=== PATIENT | female | born 1955 | race Caucasian/White ===

== ENCOUNTER → 2018-05-23 09:05 | Outpatient (CLI) | payer OTHER, SELFPAY ==
--- NOTE | 2018-05-23 09:08 | MM_ITS ---
MM Dig screening mamm BI w/CAD CAD Screening COMPARISON: Digital mammograms with CAD 05/17/2017 and 05/13/2016 INDICATION: There is a history of breast cancer in patient's 2 aunts. There is been previous biopsy left breast for benign disease. TECHNIQUE: Standard CC and MLO images were obtained. R2 CAD reviewed. FINDINGS: Moderate heterogenic fibroglandular densities are seen in the central portions of both breasts. There are scattered benign-appearing calcination is in each breast. There is faint arterial calcination in each breast as well. There is no suspicious lesion and there are no suspicious microcalcifications. IMPRESSION: Moderate breast density with no suspicious lesion seen BI-RADS Category: 2 Benign Finding(s) RECOMMENDED FOLLOW-UP: 1YR - 1 YEAR FOLLOW-UP (A letter has been sent to the patient regarding results of the study.)
== END ==
PROVIDERS: Family Provider Internal Medicine Adolescent Medicine; PCP Physician Assistant; Visit Provider Physician Assistant
DX: Z12.31 Encounter for screening mammogram for malignant neoplasm of breast (principal)
CPT/HCPCS: 77067

== ENCOUNTER 2019-03-16 17:20 | Emergency (ER) | payer OTHER, SELFPAY ==
[2019-03-16 17:28] VITALS: BP 134/68; PULSE 97; RESP 18; TEMP 36.3; O2SAT 99; BMI 33.1
[2019-03-16 17:34] VITALS: BP 134/68; PULSE 97; RESP 18; TEMP 36.3; O2SAT 99; BMI 33.1
--- NOTE | 2019-03-16 17:35 | HMH.EDUTC ---
[facility] [place] Disposition Clinical Impression: Gastroenteritis Disposition: Home, Self-Care Condition on Discharge: Good Instructions: Viral Gastroenteritis, DI for Viral Gastroenteritis -- Adult Additional Instructions: Drink plenty of fluids. Take tylenol or ibuprofen for pain or fever Take the zofran for nausea. This does not seem like it is an appendicitis, but if your symptoms are not starting to get better in 24 hours please go to the ER to be evaluated. Follow up with your regular doctor. GO TO THE ER FOR ANY WORSENING OR LIFE THREATENING SYMPTOMS Prescriptions: Ondansetron [Zofran 4mg ODT] 4 mg PO Q8HP PRN #30 tab.rapdis PRN Reason: Nausea raNITIdine HCl [Zantac 150mg] 150 mg PO BID 10 Days #20 tab Referrals: Irais Flores APRN [Primary Care Provider] - Time of Disposition: 17:47 Medical Decision Making - Medical Records Medical records reviewed: Yes: I reviewed the patient's medical records. - [place] Inquiry Pt receiving controlled substance: No [place] was queried for this patient: No Vital Signs: 03/16/19 17:28 03/16/19 17:34 03/16/19 17:50 Temperature 97.3 F L 97.3 F L 97.3 F L Temperature Source Oral Oral Oral Pulse Rate 97 H Pulse Rate [Right Brachial] 97 H 97 H Respiratory Rate 18 18 18 Blood Pressure 134/68 Blood Pressure [Right Arm] 134/68 134/68 Blood Pressure Mean [Right Arm] 90 90 Blood Pressure Source Automatic Cuff Blood Pressure Source [Right Arm] Automatic Cuff Automatic Cuff Blood Pressure Position Sitting Blood Pressure Position [Right Arm] Sitting Sitting 02 Sat by Pulse Oximetry 99 99 Oxygen Delivery Method Room Air Room Air Room Air [facility] [place] HPI - General Stated complaint: weakness,vomiting Time Seen by Provider: 03/16/19 17:35 Mode of Arrival: Ambulatory Source of Information: Patient Limitations: No Limitations Description of Symptoms (Recalled from Triage Doc. by RN): nausea and vomiting tuesday, the next morning stomach was sore from vomiting, hasn't ate much since - History of Present Illness Provider Complaint: She denies abdominal pain. She states that she came in because she does not seem to be getting better as fast as she thought she should. She is drinking fluids well and no longer vomiting, but she still is having nausea. She denies any diarrhea. - Related Data Home Medications Medication Instructions Recorded Confirmed acetaminophen ER 650 mg 650 mg PO BID tab 01/16/18 01/18/19 tablet,extended release aspirin 81 mg tablet,delayed 81 mg PO DAILY tab 01/16/18 01/18/19 release atorvastatin 40 mg tablet 40 mg PO DAILY tab 01/16/18 01/18/19 calcium carbonate-vitamin D3 600 1 cap PO BID cap 01/16/18 01/18/19 mg calcium-200 unit capsule fenofibrate 160 mg tablet 160 mg PO DAILY tab 01/16/18 01/18/19 glipizide ER 2.5 mg tablet, 2.5 mg PO DAILY tab 01/16/18 01/18/19 extended release 24 hr hydroxychloroquine 200 mg tablet 400 mg PO DAILY tab 01/16/18 01/18/19 inulin-sorbitol 1.5 gram chewable 3 g PO DAILY tab 01/16/18 01/18/19 tablet lisinopril 20 1 tab PO DAILY tab 01/16/18 01/18/19 mg-hydrochlorothiazide 25 mg tablet melatonin 5 mg capsule 10 mg PO QHS cap 01/16/18 01/18/19 metformin ER 500 mg 750 mg PO DAILY tab 01/16/18 01/18/19 tablet,extended release 24 hr multivitamin,ih-ghin-ddyvxxjw 1 tab PO QAM 01/16/18 01/18/19 tablet niacin 500 mg tablet 1,000 mg PO QHS tab 01/16/18 01/18/19 omega 1-hws-zqq-fish oil 1,000 mg 1 cap PO DAILY cap 01/16/18 01/18/19 (120 mg-180 mg) capsule Previous Rx's Medication Instructions Recorded conjugated estrogens 0.625 mg/gram 1 applic VAGINAL .twice a week #30 01/18/19 vaginal cream g oxybutynin chloride ER 10 mg 10 mg PO DAILY 30 Days #30 tab 01/18/19 tablet,extended release 24 hr Ondansetron [Zofran 4mg ODT] 4 mg PO Q8HP PRN #30 tab.rapdis 03/16/19 raNITIdine HCl [Zantac 150mg] 150 mg PO BID 10 Days #20 tab 03/16/19 Allergies All
--- NOTE | 2019-03-16 17:45 | ED_ITS ---
[place] Disposition Clinical Impression: Gastroenteritis Disposition: Home, Self-Care Condition on Discharge: Good Instructions: Viral Gastroenteritis, DI for Viral Gastroenteritis -- Adult Additional Instructions: Drink plenty of fluids. Take tylenol or ibuprofen for pain or fever Take the zofran for nausea. This does not seem like it is an appendicitis, but if your symptoms are not starting to get better in 24 hours please go to the ER to be evaluated. Follow up with your regular doctor. GO TO THE ER FOR ANY WORSENING OR LIFE THREATENING SYMPTOMS Prescriptions: Ondansetron [Zofran 4mg ODT] 4 mg PO Q8HP PRN #30 tab.rapdis PRN Reason: Nausea raNITIdine HCl [Zantac 150mg] 150 mg PO BID 10 Days #20 tab Referrals: Irais Flores APRN [Primary Care Provider] - Time of Disposition: 17:47 Medical Decision Making - Medical Records Medical records reviewed: Yes: I reviewed the patient's medical records. - [place] Inquiry Pt receiving controlled substance: No [place] was queried for this patient: No Vital Signs: 03/16/19 17:28 03/16/19 17:34 03/16/19 17:50 Temperature 97.3 F L 97.3 F L 97.3 F L Temperature Source Oral Oral Oral Pulse Rate 97 H Pulse Rate [Right Brachial] 97 H 97 H Respiratory Rate 18 18 18 Blood Pressure 134/68 Blood Pressure [Right Arm] 134/68 134/68 Blood Pressure Mean [Right Arm] 90 90 Blood Pressure Source Automatic Cuff Blood Pressure Source [Right Arm] Automatic Cuff Automatic Cuff Blood Pressure Position Sitting Blood Pressure Position [Right Arm] Sitting Sitting 02 Sat by Pulse Oximetry 99 99 Oxygen Delivery Method Room Air Room Air Room Air [place] HPI - General Stated complaint: weakness,vomiting Time Seen by Provider: 03/16/19 17:35 Mode of Arrival: Ambulatory Source of Information: Patient Limitations: No Limitations Description of Symptoms (Recalled from Triage Doc. by RN): nausea and vomiting tuesday, the next morning stomach was sore from vomiting, hasn't ate much since - History of Present Illness Provider Complaint: She denies abdominal pain. She states that she came in because she does not seem to be getting better as fast as she thought she should. She is drinking fluids well and no longer vomiting, but she still is having nausea. She denies any diarrhea. - Related Data Home Medications Medication Instructions Recorded Confirmed acetaminophen ER 650 mg 650 mg PO BID tab 01/16/18 01/18/19 tablet,extended release aspirin 81 mg tablet,delayed 81 mg PO DAILY tab 01/16/18 01/18/19 release atorvastatin 40 mg tablet 40 mg PO DAILY tab 01/16/18 01/18/19 calcium carbonate-vitamin D3 600 1 cap PO BID cap 01/16/18 01/18/19 mg calcium-200 unit capsule fenofibrate 160 mg tablet 160 mg PO DAILY tab 01/16/18 01/18/19 glipizide ER 2.5 mg tablet, 2.5 mg PO DAILY tab 01/16/18 01/18/19 extended release 24 hr hydroxychloroquine 200 mg tablet 400 mg PO DAILY tab 01/16/18 01/18/19 inulin-sorbitol 1.5 gram chewable 3 g PO DAILY tab 01/16/18 01/18/19 tablet lisinopril 20 1 tab PO DAILY tab 01/16/18 01/18/19 mg-hydrochlorothiazide 25 mg tablet melatonin 5 mg capsule 10 mg PO QHS cap 01/16/18 01/18/19 metformin ER 500 mg 750 mg PO DAILY tab
[2019-03-16 17:50] VITALS: BP 134/68; PULSE 97; RESP 18; TEMP 36.3; O2SAT 99
== END 2019-03-16 17:51 | disposition home or self-care (01) ==
PROVIDERS: Emergency Provider Nurse Practitioner Family; PCP Nurse Practitioner Family
DX: K52.9 Noninfective gastroenteritis and colitis, unspecified (principal); F32.9 Major depressive disorder, single episode, unspecified; E11.9 Type 2 diabetes mellitus without complications; Z79.84 Long term (current) use of oral hypoglycemic drugs; I10 Essential (primary) hypertension; E78.5 Hyperlipidemia, unspecified
CPT/HCPCS: 99201

== ENCOUNTER → 2019-05-25 10:17 | Outpatient (CLI) | payer OTHER, SELFPAY ==
--- NOTE | 2019-05-25 10:18 | MM_ITS ---
PROCEDURE: MM DIG SCREENING MAMM BI W/CAD Patient Age:63Y CLINICAL INDICATION: screening 63-year-old. No hormones but no new complaints Left breast prior benign stereotactic biopsy Family history: 2Paternal aunts with breast cancer COMPARISON: DMDXUL DIG MAMM-DX UNI-LT from 03/29/2013 [facility] DIG MAMM-SCREEN NIKKIE from 04/09/2014 [facility] DIG MAMM-SCREEN NIKKIE from 04/14/2015 [facility] DIG MAMM-SCREEN NIKKIE from 05/13/2016 [facility] DIG MAMM-SCREEN NIKKIE W/CAD from 05/17/2017 [facility] MM Dig screening mamm BI w/CAD from 05/23/2018 TECHNIQUE: Standard CC and MLO images were obtained. R2 CAD reviewed. FINDINGS: Areas of moderately dense heterogeneous breast fibroglandular elements again seen bilaterally most evident distributed superior and upper outer quadrant regions both breast . However this is a similar pattern to previous studies with no new suspicious or dominant mass evident. No suspicious new calcifications. Scattered benign dense round calcifications along with minimal vascular calcifications again noted bilateral. Bilateral follow-up 1 year adequate IMPRESSION: Stable mammogram with no significant new findings. Bilateral follow-up 1 year Heterogeneous moderate density breast BI-RAD Category: 2 Benign Finding(s) FOLLOW-UP: 1YR 1 Year Follow-up (A letter has been sent to the patient regarding results of the study.) Dictated by: Guillermo Mcgraw MD 05/27/2019 11:59 Signed by: <Electronically signed by Guillermo Mcgraw MD in [place]> 05/27/2019 11:59
== END ==
PROVIDERS: PCP Nurse Practitioner Family; Visit Provider Obstetrics & Gynecology
DX: Z12.31 Encounter for screening mammogram for malignant neoplasm of breast (principal)
CPT/HCPCS: 77067

== ENCOUNTER → 2020-05-27 09:52 | Outpatient (CLI) | payer MEDICARE, OTHER, SELFPAY ==
--- NOTE | 2020-05-27 09:56 | MM_ITS ---
PROCEDURE: MM DIG SCREENING MAMM BI W/CAD Digital Breast Tomosynthesis Included CLINICAL INDICATION: SCREENING there is a history of breast cancer in the patient's paternal aunts. There has been a previous biopsy left breast for benign disease. COMPARISON: MG [facility] DIG MAMM-SCREEN NIKKIE W/CAD from 05/17/2017 MG [facility] MM Dig screening mamm BI w/CAD from 05/23/2018 MG MM DIG SCREENING MAMM BI W/CAD from 05/25/2019 TECHNIQUE: Standard CC and MLO images and 3D Tomosynthesis was obtained. R2 CAD reviewed. FINDINGS: Right mildly heterogenic fibroglandular densities are seen in the central portions of both breasts. There is scattered benign-appearing calcifications in each breast. There is a biopsy clip left breast. There is faint arterial calcification in each breast. There is no suspicious lesion in either breast and no suspicious microcalcifications. IMPRESSION: Moderate breast density with no suspicious lesions seen BI-RAD Category: 2 Benign Finding(s) FOLLOW-UP: 1YR 1 Year Follow-up (A letter has been sent to the patient regarding results of the study.) Dictated by: Dr. Jason Mackay MD 05/28/2020 11:25 Dr. Jason Mackay MD in [place] 05/28/2020 11:25
== END ==
PROVIDERS: PCP Nurse Practitioner Family; Visit Provider Nurse Practitioner Family
DX: Z12.31 Encounter for screening mammogram for malignant neoplasm of breast (principal)
CPT/HCPCS: 77063; 77067

== ENCOUNTER → 2021-04-25 11:11 | Outpatient (CLI) | payer MEDICARE, OTHER, SELFPAY | PROVIDERS: Visit Provider Ophthalmology | DX: Z01.812 Encounter for preprocedural laboratory examination (principal); Z20.822 Contact with and (suspected) exposure to COVID-19 | CPT/HCPCS: U0003 ==

== ENCOUNTER 2021-04-28 10:06 | Day surgery (SDC) | payer MEDICARE, OTHER, SELFPAY ==
[2021-04-21 13:45] VITALS: BMI 32.2
[2021-04-28 10:41] VITALS: BP 175/107; PULSE 93; RESP 18; TEMP 36.3; O2SAT 99
[2021-04-28 11:53] VITALS: BP 175/78; PULSE 77; RESP 18; O2SAT 99
[2021-04-28 11:58] VITALS: BP 170/70; PULSE 74; RESP 18; O2SAT 100
[2021-04-28 12:03] VITALS: BP 168/62; PULSE 70; RESP 18; O2SAT 100
[2021-04-28 12:08] VITALS: BP 162/74; PULSE 71; RESP 18; O2SAT 100
[2021-04-28 12:10] VITALS: BP 167/96; PULSE 68; RESP 16; TEMP 37.1; O2SAT 100
[2021-04-29 07:10] LABS: POC Glucose,Bedside 105 (70-110)
== END 2021-04-28 12:22 | disposition home or self-care (01) ==
LOC: OR 10:09
PROVIDERS: PCP Nurse Practitioner Family; Visit Provider Ophthalmology
DX: H25.813 Combined forms of age-related cataract, bilateral (principal); H02.834 Dermatochalasis of left upper eyelid; H02.831 Dermatochalasis of right upper eyelid; M19.90 Unspecified osteoarthritis, unspecified site; E11.9 Type 2 diabetes mellitus without complications; I10 Essential (primary) hypertension; E78.5 Hyperlipidemia, unspecified; Z79.82 Long term (current) use of aspirin; Z79.84 Long term (current) use of oral hypoglycemic drugs; Z79.899 Other long term (current) drug therapy
CPT/HCPCS: 66984; 82962; V2632

== ENCOUNTER → 2021-05-09 11:55 | Outpatient (CLI) | payer MEDICARE, OTHER, SELFPAY | PROVIDERS: Visit Provider Ophthalmology | DX: Z01.812 Encounter for preprocedural laboratory examination (principal); Z20.822 Contact with and (suspected) exposure to COVID-19 | CPT/HCPCS: U0003 ==

== ENCOUNTER 2021-05-12 08:38 | Day surgery (SDC) | payer MEDICARE, OTHER, SELFPAY ==
[2021-05-08 13:40] VITALS: BMI 32.2
[2021-05-12 09:18] VITALS: BP 153/105; PULSE 82; RESP 18; TEMP 36.5; O2SAT 98
[2021-05-12 09:32] LABS: POC Glucose,Bedside 100 (70-110)
[2021-05-12 10:44] VITALS: BP 193/87; PULSE 72; RESP 18; O2SAT 100
[2021-05-12 10:49] VITALS: BP 150/68; PULSE 67; RESP 18; O2SAT 100
[2021-05-12 10:54] VITALS: BP 142/66; PULSE 67; RESP 18; O2SAT 100
[2021-05-12 10:59] VITALS: BP 142/69; PULSE 68; RESP 18; O2SAT 100
[2021-05-12 11:01] VITALS: BP 160/82; PULSE 72; RESP 18; TEMP 36.5; O2SAT 100
== END 2021-05-12 11:09 | disposition home or self-care (01) ==
LOC: OR 08:41
PROVIDERS: PCP Nurse Practitioner Family; Visit Provider Ophthalmology
DX: H25.813 Combined forms of age-related cataract, bilateral (principal); H02.831 Dermatochalasis of right upper eyelid; H02.834 Dermatochalasis of left upper eyelid; H53.149 Visual discomfort, unspecified; M19.90 Unspecified osteoarthritis, unspecified site; E11.9 Type 2 diabetes mellitus without complications; I10 Essential (primary) hypertension; E78.5 Hyperlipidemia, unspecified; Z79.82 Long term (current) use of aspirin; Z79.899 Other long term (current) drug therapy; Z79.84 Long term (current) use of oral hypoglycemic drugs
CPT/HCPCS: 66984; 82962; V2632

== ENCOUNTER → 2021-05-29 09:41 | Outpatient (CLI) | payer MEDICARE, OTHER, SELFPAY ==
--- NOTE | 2021-05-29 09:43 | MM_ITS ---
PROCEDURE: MM DIG SCREENING MAMM BI W/CAD Digital Breast Tomosynthesis Included CLINICAL INDICATION: SCREENING COMPARISON: MG [facility] MM Dig screening mamm BI w/CAD from 05/23/2018 MG MM DIG SCREENING MAMM BI W/CAD from 05/25/2019 MG MM DIG SCREENING MAMM BI W/CAD from 05/27/2020 TECHNIQUE: Standard CC and MLO images and 3D Tomosynthesis was obtained. R2 CAD reviewed. FINDINGS: There are scattered areas of fibroglandular density. Benign-appearing calcifications are noted bilaterally. No suspicious appearing mass, malignant-appearing microcalcification, architectural distortion, or skin thickening. Biopsy clip is present in the medial aspect of left breast middle 1/ IMPRESSION: Benign findings. No evidence of malignancy with no significant BI-RAD Category: 2 Benign Finding FOLLOW-UP: 1 YR 1 Year Follow-up (A letter has been sent to the patient regarding results of the study.) Dictated by: Jose Canseco MD 06/04/2021 17:45 Jose Canseco MD in [place] 06/04/2021 17:45
== END ==
PROVIDERS: PCP Nurse Practitioner Family; Visit Provider Nurse Practitioner Family
DX: Z12.31 Encounter for screening mammogram for malignant neoplasm of breast (principal)
CPT/HCPCS: 77063; 77067

== ENCOUNTER → 2021-11-20 09:05 | Outpatient (CLI) | payer MEDICARE, OTHER, SELFPAY ==
--- NOTE | 2021-11-20 09:21 | XR_ITS ---
FINAL REPORT TECHNIQUE: Bone mineral density was calculated of the lumbar spine and hip. CLINICAL HISTORY: . post menopausal FINDINGS: Using L1-4, the bone mineral density of the spine is 0.946 g/cm2, corresponding to T-score of -0.9. Using the left hip, the bone mineral density of the femoral neck is 0.872 g/cm2, corresponding to a T-score of -0.6. IMPRESSION: Normal bone mineral density of the lumbar spine and proximal left femur. Reviewed, Interpreted and Dictated by Julian Hargrove III, MD Transcribed by Yonis Ramires Authenticated by Julian Hargrove III, MD on 11/20/2021 10:09:[address] [facility]
== END ==
PROVIDERS: PCP Nurse Practitioner Family; Visit Provider Nurse Practitioner Family
DX: Z13.820 Encounter for screening for osteoporosis (principal); Z78.0 Asymptomatic menopausal state
CPT/HCPCS: 77080

== ENCOUNTER 2022-04-21 12:37 | Inpatient (IN) | payer MEDICARE, OTHER, SELFPAY ==
--- NOTE | 2022-04-21 13:12 | HMH.EDUTC ---
[facility] [facility] [place] Condition on Discharge: Fair <Silas Killian - Last Filed: 04/21/22 18:53> Condition on Discharge: Good <Anurag Yadav - Last Filed: 04/22/22 09:28> Clinical Impression: Acute pancreatitis Qualifiers: Pancreatitis type: other Acute pancreatitis complication: unspecified Qualified Code(s): K85.80 - Other acute pancreatitis without necrosis or infection Disposition: Admitted As Inpatient Medical Decision Making - Lab Data Result diagrams: 04/21/22 14:16 04/21/22 14:16 - CT Data CT Scan: Abdomen, Pelvis Time Received: 18:[address] Reviewed: Yes: I have reviewed the patient's CT results, I have viewed the radiologist's interpretation - Reevaluation(s) Time: 18:54 <Silas Killian - Last Filed: 04/21/22 18:53> - Medical Records Medical records reviewed: No: I reviewed the patient's medical records. - [place] Inquiry Pt receiving controlled substance: No - Lab Data Result diagrams: 04/22/22 05:45 04/22/22 05:45 <Anurag Yadav - Last Filed: 04/22/22 09:28> Vital Signs: 04/21/22 13:26 04/21/22 17:04 04/21/22 20:00 Temperature 98.7 F 98.0 F Temperature Source Oral Oral Pulse Rate Pulse Rate [Left Radial] 100 H 93 H Respiratory Rate 17 20 Blood Pressure Blood Pressure [Right Arm] 153/96 H 161/86 H Blood Pressure Mean [Right Arm] 115 111 Blood Pressure Source [Right Arm] Automatic Cuff Blood Pressure Position [Right Arm] Sitting 02 Sat by Pulse Oximetry 99 99 95 Oxygen Delivery Method Room Air Room Air 04/21/22 20:23 Temperature 98.1 F Temperature Source Oral Pulse Rate 90 Pulse Rate [Left Radial] 76 Respiratory Rate 20 Blood Pressure 153/78 H Blood Pressure [Right Arm] 137/75 Blood Pressure Mean [Right Arm] 95 Blood Pressure Source [Right Arm] Automatic Cuff Blood Pressure Position [Right Arm] Supine 02 Sat by Pulse Oximetry 95 Oxygen Delivery Method Room Air - Lab Data Lab Results 04/21/22 13:30: Urine Color [place], Urine Appearance Clear, Urine pH 5.5, Ur Specific [place] 1.030, Urine Protein 1+, Urine Glucose (UA) Negative, Urine Ketones 15, Urine Blood Trace, Urine Nitrate Negative, Urine Bilirubin 2+ A, Urine Urobilinogen 0.2, Ur Leukocyte Esterase Negative 04/21/22 14:16: WBC 12.8 H, RBC 4.48, Hgb 12.8, Hct 37.0, MCV 82.7, MCH 28.6, MCHC 34.5, RDW 13.8, Plt Count 284, MPV 9.5, Neut % (Auto) 88.3 H, Lymph % (Auto) 4.9 L, [place] % (Auto) 5.0, Eos % (Auto) 1.6, Baso % (Auto) 0.2, Neut # (Auto) 11.3 H, Lymph # (Auto) 0.6 L, [place] # (Auto) 0.6, Eos # (Auto) 0.2, Baso # (Auto) 0.0, Total Counted 100, Neutrophils % (Manual) 87 H, Band Neutrophils % 1.0, Lymphocytes % (Manual) 6 L, Monocytes % (Manual) 6, Platelet Estimate Normal, RBC Morphology Normal 04/21/22 14:16: Sodium 128 L, Potassium 3.7, Chloride 97 L, Carbon Dioxide 20 L, Anion Gap 14.7, BUN 15, Creatinine 0.50 L, Estimated Creat Clear 68, Estimated GFR 123, Est GFR ( Amer) 149, Glucose 96, Calcium 8.9, Total Bilirubin 0.8, AST 61 H, ALT 103 H, Alkaline Phosphatase 117, Total Protein 6.6, Albumin 3.8, Globulin 2.8, Albumin/Globulin Ratio 1.4, Amylase 86, Lipase 215 04/21/22 18:54: SARS-CoV-2 (PCR) Not detected, Influenza A Untype (PCR) Not detected, Influenza Type B (PCR) Not detected Orders (Tests/Meds): ED MEDICATIONS Generic Name Dose Route Start Last Admin Trade Name Freq PRN Reason Stop Dose Admin Acetaminophen 650 mg 04/22/22 09:00 Acetaminophen 325mg Tab PO 05/22/22 08:59 BIDP PRN MILD TO MODERATE PAIN Aspirin 81 mg 04/22/22 09:00 04/22/22 08:54 Aspirin Ec 81mg Tablet PO 05/22/22 08:59 81 mg DAILY CHRISTINA Administration Atorvastatin Calcium 40 mg 04/22/22 09:00 04/22/22 08:54 Atorvastatin 40mg Tablet PO 05/22/22 08:59 40 mg DAILY CHRISTINA Administration Docusate Sodium 100 mg 04/22/22 09:00 04/22/22 08:54 Docusate Sodium 100 Mg Capsule PO 05/22/22 08:59 100 mg DAILY CHRISTINA Administration Enoxaparin Sodium 40 mg 04/22/22 09:00 04/22/22 08:53
[2022-04-21 13:26] VITALS: BP 153/96; PULSE 100; RESP 17; TEMP 37.1; O2SAT 99; BMI 30.9
--- NOTE | 2022-04-21 14:02 | PC.NURSE ---
lab called for blood draw
[2022-04-21 14:34] LABS: Basophils % 0.2 % (0.1-2.0); Eosinophils # 0.2 K/mm3 (0.0-0.4); Eosinophils % 1.6 % (0.1-12.0); Hemoglobin 12.8 g/dL (12.2-16.2); Lymphocytes # 0.6 K/mm3 (0.7-4.5); Lymphocytes % 4.9 % (10-50); Mean Corpuscular HGB Conc 34.5 g/dL (31.8-35.4); Mean Corpuscular Hemoglobin 28.6 pg (27.0-31.2); Mean Corpuscular Volume 82.7 fl (81-99); Mean Platelet Volume 9.5 fl (7.4-10.4); Monocytes # 0.6 K/mm3 (0.1-1.0); Neutrophils # 11.3 K/mm3 (1.8-7.8); Neutrophils % 88.3 % (37.0-80.0); Platelet Count 284 K/mm3 (142-424); Red Blood Count 4.48 M/mm3 (4.20-5.40); Red Cell Distribution Width 13.8 % (11.5-17.5); White Blood Count 12.8 K/mm3 (4.8-10.8)
[2022-04-21 14:37] LABS: Chloride 97 mmol/L (98-107); Potassium 3.7 mmoL/L (3.5-5.1); Sodium 128 mmol/L (136-145)
[2022-04-21 14:39] LABS: Amylase 86 U/L (30-110); Blood Urea Nitrogen 15 mg/dl (7-17)
[2022-04-21 14:40] LABS: Alanine Aminotransferase 103 U/L (12-78); Albumin Level 3.8 g/dl (3.5-5.0); Albumin/Globulin Ratio 1.4 (1.1-1.8); Alkaline Phosphatase 117 U/L (38-126); Anion Gap 14.7 mEq/L (5-15); Aspartate Amino Transferase 61 U/L (14-36); Bilirubin,Total 0.8 mg/dl (0.2-1.3); Calcium 8.9 mg/dl (8.4-10.2); Carbon Dioxide 20 mmol/L (22.0-30.0); Creatinine Clearance Estimated 68 mL/min (50-200); Estimated Glomerular Filt Rate 123 ml/min (>60); GFR (African American) 149 ML/MIN (>60); Globulin 2.8 g/dL (1.3-3.2); Glucose 96 mg/dl (74-100); Lipase 215 U/L (23-300); Total Protein,Serum 6.6 g/dl (6.3-8.2)
[2022-04-21 14:41] LABS: MANUAL DIFFERENTIAL MANUAL DIFFERENTIAL (MANUAL DIFF)
[2022-04-21 15:14] LABS: Lymphocytes % 6 % (10-50); Monocytes % 6 % (2-9); Neutrophils % 87 % (42-76); Platelet Estimate Normal; RBC Morphology Normal; Total Cells Counted 100
[2022-04-21 15:16] LABS: Color,Urine Amber (Yellow)
[2022-04-21 15:17] LABS: Apearance,Urine Clear (Clear); PH,Urine 5.5 (5.0-8.5); Protein,Urine 1+ (Negative)
[2022-04-21 15:18] LABS: Bilirubin,Urine 2+ (Negative); Blood, Urine Trace (Negative); Glucose,Urine (UA) Negative (Negative); Ketones,Urine 15 (Negative); UTC Leukocyte Esterase,Urine Negative (Negative); UTC Nitrate,Urine Negative (Negative); Urobilinogen,Urine 0.2 EU/dl (0.2)
--- NOTE | 2022-04-21 15:43 | PC.NURSE ---
pt to be transferred to ed when bed becomes available
[2022-04-21 17:04] VITALS: BP 161/86; PULSE 93; RESP 20; TEMP 36.7; O2SAT 99; BMI 30.9
--- NOTE | 2022-04-21 17:04 | PC.NURSE ---
1702 MD AT BEDSIDE TO EVALUATE PT
[2022-04-21 17:05] VITALS: BMI 30.9
--- NOTE | 2022-04-21 17:14 | CT_ITS ---
PROCEDURE INFORMATION: Exam: CT Abdomen And Pelvis With Contrast Exam date and time: 04/21/2022 5:30 PM Age: 66 years old Clinical indication: Abdominal pain; Localized; Left lower quadrant (llq); Prior surgery; Additional info: Llq pain TECHNIQUE: Imaging protocol: Computed tomography of the abdomen and pelvis with contrast. Radiation optimization: All CT scans at this facility use at least one of these dose optimization techniques: automated exposure control; mA and/or kV adjustment per patient size (includes targeted exams where dose is matched to clinical indication); or iterative reconstruction. Contrast material: ISOVUE; Contrast volume: 75 ml; Contrast route: IV; COMPARISON: No relevant prior studies available. FINDINGS: Lungs: Scarring and atelectasis in the lung bases. Pleural spaces: Trace bilateral pleural effusions. Liver: There is enlargement of the liver, measuring 18.4 cm. There is a diffuse decrease in hepatic parenchymal density, consistent with fatty infiltration. The liver is otherwise unremarkable. Gallbladder and bile ducts: Multiple calcified gallstones are present. The gallbladder is otherwise unremarkable. There is no evidence of biliary ductal dilation. Pancreas: There is peripancreatic inflammatory stranding and fluid, consistent with acute pancreatitis. Some of the peripancreatic free fluid appears to show early signs of loculation, however no measurable collections are appreciated at this time. No definitive evidence for pancreatic necrosis at this time. Spleen: The spleen is normal. Adrenal glands: The adrenal glands are normal. Kidneys and ureters: 1 cm nonobstructive right renal stone. The kidneys are otherwise unremarkable. The ureters are normal. Stomach and bowel: No bowel wall thickening, obstruction, or other acute pathology. Diffuse colonic diverticulosis is present. There is mildly excessive colonic stool content. Appendix: No evidence of appendicitis. Intraperitoneal space: There is no free intraperitoneal air. Vasculature: The arterial vasculature demonstrates diffuse mild atherosclerotic calcification. Lymph nodes: No retroperitoneal, pelvic, or mesenteric adenopathy. Urinary bladder: The bladder is decompressed. Reproductive: There has been a hysterectomy. Bones/joints: Severe bilateral hip osteoarthritis. Lumbar levoscoliosis. No acute skeletal pathology. Moderate multilevel degenerative changes of the spine, as manifested by multilevel anterior osteophytes and multilevel decrease in intervertebral disc space. Soft tissues: There is a fat-containing umbilical hernia. Other findings: Evidence of pelvic floor dysfunction. IMPRESSION: 1. Severe acute edematous pancreatitis with a significant amount of peripancreatic inflammatory free fluid. Note that I do not see any measurable pancreatic or peripancreatic fluid collections at this time, however some segments of the free fluid demonstrate evidence for early loculation. Close follow-up is advised. 2. Trace bilateral pleural effusions. 3. Incidental findings as above.
--- NOTE | 2022-04-21 17:32 | PC.NURSE ---
pt to CT via stretcher
--- NOTE | 2022-04-21 17:43 | PC.NURSE ---
PT RETURNED FROM CT
--- NOTE | 2022-04-21 17:51 | PC.NURSE ---
WARM BLANKET PROVIDED FOR COMFORT, UPDATED ON POC. FAMILY AT BEDSIDE. NO NEEDS AT THIS TIME
--- NOTE | 2022-04-21 18:41 | PC.NURSE ---
MD AT BEDSIDE UPDATING PT AND FAMILY ON POC
--- NOTE | 2022-04-21 18:48 | PC.NURSE ---
Dr. Killian speaking with DR. Pritchett at this time
--- NOTE | 2022-04-21 18:53 | PC.NURSE ---
Spoke with DELON Huynh regarding patient admission
[2022-04-21 19:06] LABS: Coronavirus 19, PCR Not Detected (NotDetected); Influenza A, PCR Not Detected (NotDetected); Influenza B, PCR Not Detected (NotDetected)
[2022-04-21 20:00] VITALS: O2SAT 95
[2022-04-21 20:23] VITALS: BP 137/75; BP 153/78; PULSE 76; PULSE 90; RESP 20; TEMP 36.6; TEMP 36.7; O2SAT 95; O2SAT 97; BMI 32.3
--- NOTE | 2022-04-21 20:23 | PC.NURSE ---
PT ARRIVED TO FLOOR VIA W/C FROM ED W/STAFF @ 2022
[2022-04-21 22:05] LABS: POC Glucose,Bedside 60 (70-110)
[2022-04-22 04:00] VITALS: BP 164/93; PULSE 109; RESP 16; TEMP 36.6; O2SAT 98
--- NOTE | 2022-04-22 04:35 | PC.NURSE ---
Pt is alert and oriented x4, pt abdomen soft and tender, bowel sounds active. Pt has complained of pain 2 times, treated prn per dec, pt has complained of nausea 1 time, treated prn per dec. Pt is on room air O2 sat >95%. Pt has ambulated to the bathroom with standby assist. Daughter has stayed the night. Pt has LR running at 100 ml/hr. Pt is ACHS FS, pt has not required coverage.
[2022-04-22 05:19] VITALS: BMI 32.3
[2022-04-22 06:18] LABS: Basophils % 0.2 % (0.1-2.0); Eosinophils # 0.2 K/mm3 (0.0-0.4); Eosinophils % 1.7 % (0.1-12.0); Hematocrit 36.7 % (37.0-47.0); Lymphocytes # 0.4 K/mm3 (0.7-4.5); Mean Corpuscular HGB Conc 32.6 g/dL (31.8-35.4); Mean Corpuscular Hemoglobin 28.1 pg (27.0-31.2); Mean Platelet Volume 9.3 fl (7.4-10.4); Monocytes # 0.8 K/mm3 (0.1-1.0); Monocytes % 7.5 % (1.7-9.3); Neutrophils # 8.6 K/mm3 (1.8-7.8); Neutrophils % 86.6 % (37.0-80.0); Platelet Count 278 K/mm3 (142-424); Red Blood Count 4.27 M/mm3 (4.20-5.40); Red Cell Distribution Width 13.8 % (11.5-17.5)
[2022-04-22 06:25] LABS: MANUAL DIFFERENTIAL MANUAL DIFFERENTIAL (MANUAL DIFF)
[2022-04-22 06:27] LABS: Anion Gap 11.7 mEq/L (5-15); Blood Urea Nitrogen 10 mg/dl (7-17); Calcium 8.5 mg/dl (8.4-10.2); Carbon Dioxide 22 mmol/L (22.0-30.0); Chloride 102 mmol/L (98-107); Creatinine Clearance Estimated 71 mL/min (50-200); Estimated Glomerular Filt Rate 123 ml/min (>60); GFR (African American) 149 ML/MIN (>60); Potassium 3.7 mmoL/L (3.5-5.1); Sodium 132 mmol/L (136-145)
[2022-04-22 06:34] LABS: Glucose 49 mg/dl (74-100)
[2022-04-22 06:48] LABS: Lymphocytes % 9 % (10-50); Monocytes % 3 % (2-9); Neutrophils % 88 % (42-76); Total Cells Counted 100
[2022-04-22 06:49] LABS: Platelet Estimate Normal; RBC Morphology Normal
--- NOTE | 2022-04-22 07:08 | P.CONPHA_ITS ---
[facility] Pharmacy VTE Monitoring - Patient Demographics Admission date: 04/21/22 Report Date: 04/22/22 Time: 07:08 Allergies/Adverse Reactions: Patient Allergies No Known Allergies Allergy (Verified 04/28/21 10:26) Height: 1.6 m Weight: 82.826 kg Patient Problems: Current Active Problems Gastroenteritis (Acute) Acute pancreatitis (Acute) - VTE Risk Labs: VTE Related Lab Results Hgb 12.0 g/dL (12.2-16.2) L 04/22/22 05:45 Hct 36.7 % (37.0-47.0) L 04/22/22 05:45 Plt Count 278 K/mm3 (142-424) 04/22/22 05:45 BUN 10 mg/dl (7-17) D 04/22/22 05:45 Creatinine 0.50 mg/dl (0.52-1.04) L 04/22/22 05:45 Estimated Creat Clear 71 mL/min (50-200) 04/22/22 05:45 VTE Score: 2 - Prophylaxis VTE Prophylaxis Ordered?: Yes Types of VTE Prophylaxis: TEDS Knee High, Pharmacological Location of Applied Device: Bilateral Lower Extremeties Pharmacologic Type: Enoxaparin
--- NOTE | 2022-04-22 07:12 | HMH.PHAINT ---
MEDICATION RECONCILIATION COMPLETED ON PATIENT USING EXTERNAL FILL HISTORY FROM PHARMACY. -[place] DIA, ASHLEYD
[2022-04-22 08:00] VITALS: BP 157/77; PULSE 103; RESP 16; TEMP 36.7; O2SAT 96
--- NOTE | 2022-04-22 09:06 | HMH.HP ---
*Admission Date: 04/21/22 *Chief complaint: abdominal pain *History of present illness: Ms. Nieves is a 66-year-old female with a history of diabetes, hypertension, hyperlipidemia, and arthritis who began having abdominal pain and vomiting on Tuesday. She states she has had what she thought was reflux for quite a while but on Tuesday, she began vomiting and could not stop. The pain in her abdomen progressively worsened and on Tuesday she began having pain that radiated into her back. She presented to the emergency room for further evaluation and treatment. She had an abdominal pelvic CT which showed severe acute edematous pancreatitis with a significant amount of peripancreatic inflammatory free fluid. She also had trace bilateral pleural effusions. Her white blood cell count was elevated as were her AST and ALT. Interestingly, her amylase and lipase were normal. She was admitted and started on IV fluids, antiemetics, and pain management. [facility] History I have reviewed the patient's past medical history: Yes Medical History: Reports:: Depression, Diabetes Mellitus Type 2, Hyperlipidemia, Hypertension, MRSA (finger) Denies:: Cancer, Diabetes Mellitus Type 1, Internal Pacemaker, Seizures *Have you ever received a pneumonia vaccine?: No *Have you received a flu vaccine this season?: Yes Other Medical History: Reports: Arthritis, Other Other Surgeries: Yes: Hysterectomy-Total, Other (left breast bx, MRSA left 5th finger). No: Pacemaker Amputation: No Fractures: No - *Social History Smoking Status: Never smoker Alcohol Intake: never Alcohol Intake Frequency:: other Substance Use Type: denies use *Occupational Status:: retired Housing: house *Travel in the last 8 weeks: None - Psychiatric History Pschychiatric History:: Reports:: Depression Family Hx:: Diabetes, Hypertension, Coronary Artery Disease Review of Systems - Constitutional Reports chills, Reports fever(s), Reports weakness - Eyes Denies blurry vision, Denies double vision - ENT Denies nasal congestion, Denies sore throat - *Cardiovascular Reports shortness of breath, Denies chest pain - *Respiratory Reports shortness of breath, Denies cough - *Gastrointestinal Reports abdominal pain, Reports loose stools, Reports nausea, Reports vomiting - *Genitourinary Denies difficulty urinating, Denies painful urination - *Musculoskeletal Reports back pain - *Neurologic Reports headache(s), Reports weakness Meds Home Medications Medication Instructions Recorded Confirmed Type aspirin 81 mg tablet,delayed 81 mg PO DAILY tab 01/16/18 04/21/22 History release atorvastatin 40 mg tablet 40 mg PO DAILY tab 01/16/18 04/21/22 History fenofibrate 160 mg tablet 160 mg PO DAILY tab 01/16/18 04/21/22 History melatonin 5 mg capsule 10 mg PO HS cap 01/16/18 04/22/22 History Acetaminophen [Tylenol Arthritis] 650 mg PO BIDP PRN 04/28/21 04/22/22 History Hydroxychloroquine Sulfate 200 mg PO BID 04/28/21 04/21/22 History [Plaquenil] Loratadine 10 mg PO DAILY 04/28/21 04/21/22 History Multivitamin 1 each PO DAILY 04/28/21 04/21/22 History Niacin (Inositol Niacinate) 1,000 mg PO DAILY 04/28/21 04/21/22 History [Niacin 500 mg Capsule] Left Hand-3/Dha/Epa/Fish Oil [Fish Oil 1 each PO TID 04/28/21 04/21/22 History 500 mg Softgel] Oxybutynin Chloride [Oxybutynin 20 mg PO DAILY 04/28/21 04/22/22 History Chloride ER] lisinopriL [Lisinopril] 40 mg PO DAILY 04/28/21 04/21/22 History Ondansetron [Zofran 4mg ODT] 4 mg PO Q8HP PRN #20 tab 04/21/22 Rx Meloxicam 7.5 mg PO DAILYP PRN 04/22/22 04/22/22 History Metformin HCl [Metformin HCl ER] 750 mg PO DAILY 04/22/22 04/22/22 History glipiZIDE [Glipizide ER] 2.5 mg PO DAILY 04/22/22 04/22/22 History Allergies Allergy/AdvReac Type Severity Reaction Status Date / Time No Known Allergies Allergy Verified 04/28/21 10:26 Exam Vital signs and Labs for Last 24 Hours: Temp Pulse Resp BP Pulse Ox 98.1 F 103 H
[2022-04-22 10:03] VITALS: BMI 32.0
--- NOTE | 2022-04-22 10:16 | PC.NURSE ---
Addendum entered by Lizeth Shields RN 04/22/22 17:17: PT IS SITTING UP IN THE CHAIR AT THIS TIME. Original Note: PT IS RESTING IN BED. ALERT AND ORIENTED X4. MEDICATED PER MAR FOR ABDOMINAL DISCOMFORT. LUNG SOUNDS CLEAR. ABDOMEN DISTENDED WITH TENDERNESS NOTED (LOWER QUADS). WILL CONTINUE TO MONITOR.
[2022-04-22 12:35] LABS: POC Glucose,Bedside 59 (70-110)
[2022-04-22 16:00] VITALS: BP 158/78; PULSE 92; RESP 16; TEMP 36.9; O2SAT 99
[2022-04-22 17:57] LABS: POC Glucose,Bedside 120 (70-110)
[2022-04-22 20:00] VITALS: BP 162/80; PULSE 92; RESP 20; TEMP 36.6; O2SAT 99
[2022-04-22 21:52] LABS: POC Glucose,Bedside 120 (70-110)
[2022-04-23 00:32] LABS: POC Glucose,Bedside 52 (70-110)
[2022-04-23 04:00] VITALS: BP 166/90; PULSE 92; RESP 20; TEMP 36.8; O2SAT 98
[2022-04-23 04:40] VITALS: BMI 32.7
--- NOTE | 2022-04-23 04:52 | PC.NURSE ---
Patient A&ox4. Patient has been medicated per mar for abdominal pain. Abdomen is distended and tender. No complaints noted.
[2022-04-23 05:47] LABS: POC Glucose,Bedside 125 (70-110)
[2022-04-23 08:00] VITALS: BP 157/82; PULSE 99; RESP 20; TEMP 36.6; O2SAT 99
--- NOTE | 2022-04-23 08:55 | P.PN_ITS ---
Internal Medicine - PN: Subj *Date: 04/23/22 *Time: 08:55 Interval history: Patient does feel a little bit better today. Her pain has improved but she still has pain present in the mid abdomen and she feels like her abdomen is swollen. She slept off and on throughout the night and has been tolerating clear liquids. Exam Vital signs and Labs for Last 24 Hours: Temp Pulse Resp BP Pulse Ox 98.3 F 92 H 20 166/90 H 98 04/23/22 04:00 04/23/22 04:00 04/23/22 04:00 04/23/22 04:00 04/23/22 04:00 Laboratory Results - last 24 hr 04/22/22 06:20: POC Glucose 52 L 04/22/22 11:55: POC Glucose 59 L 04/22/22 16:31: POC Glucose 120 H 04/22/22 20:52: POC Glucose 120 H 04/23/22 05:37: POC Glucose 125 H I & O for Last 24 hours: Intake & Output 04/20/22 04/21/22 04/22/22 04/23/22 11:59 11:59 11:59 11:59 Intake Total 1191 / 1191 4222 / 4222 Balance 1191 / 1191 4222 / 4222 Weight 180 lb 12.465 oz 184 lb 9.6 oz - Constitutional no acute distress - *Routine Respiratory Exam Present: CTA bilaterally - *Routine Cardiovascular Exam Present: RRR - *Routine Abdominal Exam Present: soft, normoactive bowel sounds, tenderness (Periumbilical and epigastric) - *Routine Extremities Exam Absent: cyanosis, clubbing, edema - *Routine Skin Exam Present: warm. Absent: rash Assessment and Plan (1) Acute pancreatitis Status: Acute Qualifiers: Pancreatitis type: other Acute pancreatitis complication: unspecified Qualified Code(s): K85.80 - Other acute pancreatitis without necrosis or infection Category: Medical Code(s): K85.90 - Acute pancreatitis without necrosis or infection, unspecified (2) Hypoglycemia Status: Acute Category: Medical Code(s): E16.2 - Hypoglycemia, unspecified (3) Elevated LFTs Status: Acute Category: Medical Code(s): R79.89 - Other specified abnormal findings of blood chemistry (4) Type 2 diabetes mellitus Status: Chronic Category: Medical Code(s): E11.9 - Type 2 diabetes mellitus without complications (5) Hypertension Status: Chronic Category: Medical Code(s): I10 - Essential (primary) hypertension (6) Hyperlipidemia Status: Chronic Category: Medical Code(s): E78.5 - Hyperlipidemia, unspecified (7) Arthritis Status: Chronic Category: Medical Code(s): M19.90 - Unspecified osteoarthr itis, unspecified site - Assessment and plan all Dx Assessment and Plan for all problems:: Patient is improving slowly. We will recheck labs this morning.
[2022-04-23 09:26] LABS: Basophils % 0.3 % (0.1-2.0); Eosinophils # 0.6 K/mm3 (0.0-0.4); Eosinophils % 4.9 % (0.1-12.0); Hematocrit 35.3 % (37.0-47.0); Hemoglobin 12.1 g/dL (12.2-16.2); Lymphocytes # 0.5 K/mm3 (0.7-4.5); Lymphocytes % 4.3 % (10-50); Mean Corpuscular HGB Conc 34.4 g/dL (31.8-35.4); Mean Corpuscular Hemoglobin 28.2 pg (27.0-31.2); Mean Corpuscular Volume 82.2 fl (81-99); Mean Platelet Volume 8.4 fl (7.4-10.4); Monocytes # 0.7 K/mm3 (0.1-1.0); Neutrophils # 9.8 K/mm3 (1.8-7.8); Neutrophils % 84.4 % (37.0-80.0); Platelet Count 313 K/mm3 (142-424); Red Blood Count 4.29 M/mm3 (4.20-5.40); Red Cell Distribution Width 13.9 % (11.5-17.5); White Blood Count 11.6 K/mm3 (4.8-10.8)
[2022-04-23 09:37] LABS: Alanine Aminotransferase 63 U/L (12-78); Albumin/Globulin Ratio 1.1 (1.1-1.8); Alkaline Phosphatase 112 U/L (38-126); Amylase 59 U/L (30-110); Anion Gap 10.4 mEq/L (5-15); Aspartate Amino Transferase 45 U/L (14-36); Bilirubin,Total 0.3 mg/dl (0.2-1.3); Blood Urea Nitrogen 6 mg/dl (7-17); Calcium 8.5 mg/dl (8.4-10.2); Carbon Dioxide 26 mmol/L (22.0-30.0); Chloride 101 mmol/L (98-107); Creatinine Clearance Estimated 72 mL/min (50-200); Estimated Glomerular Filt Rate 159 ml/min (>60); GFR (African American) 193 ML/MIN (>60); Globulin 2.8 g/dL (1.3-3.2); Glucose 147 mg/dl (74-100); Lipase 130 U/L (23-300); Potassium 3.4 mmoL/L (3.5-5.1); Sodium 134 mmol/L (136-145); Total Protein,Serum 5.8 g/dl (6.3-8.2)
[2022-04-23 16:00] VITALS: BP 156/88; PULSE 69; RESP 18; TEMP 36.9; O2SAT 99
--- NOTE | 2022-04-23 16:35 | PC.NURSE ---
PT IS RESTING IN BED WITH FAMILY AT BEDSIDE.ALERT AND ORIENTED X4. HAS BEEN TOLERATING FULL LIQUIDS WELL. PT IS EXCITED FOR THE LOW FAT DIET AT DINNER TIME. AMBULATES TO THE BATHROOM. TOLERATED SHOWER THIS SHIFT. LUNG SOUNDS CLEAR. ABDOMEN DISTENDED WITH HYPOACTIVE BOWEL SOUNDS. PT STATES SHE IS PASSING VERY LITTLE FLATUS. WILL CONTINUE TO MONITOR..
[2022-04-23 20:00] VITALS: BP 156/83; PULSE 76; RESP 16; TEMP 36.7; O2SAT 98
[2022-04-24 01:12] LABS: POC Glucose,Bedside 119 (70-110)
[2022-04-24 04:00] VITALS: BP 158/91; PULSE 89; RESP 16; TEMP 36.7; O2SAT 97
--- NOTE | 2022-04-24 04:13 | PC.NURSE ---
Pt has rested very well this shift. she sat in the chair for the beginning of the shift. she has remained on RA. she c/o tenderness in middle of abd on palpation. abd is distended. no BM tonight, still need stool sample. no c/o nausea. no vomiting.
[2022-04-24 04:41] VITALS: BMI 32.3
[2022-04-24 08:00] VITALS: BP 149/75; PULSE 108; RESP 16; TEMP 36.7; O2SAT 98
--- NOTE | 2022-04-24 10:32 | P.PN_ITS ---
Internal Medicine - PN: Subj *Date: 04/24/22 *Time: 10:32 Interval history: States she is feeling better since. Still has some occasional gas and bloating with minimal pain. She is tolerating a low-fat diet. She has not had a bowel movement. Exam Vital signs and Labs for Last 24 Hours: Temp Pulse Resp BP Pulse Ox 98.1 F 108 H 16 149/75 H 98 04/24/22 08:00 04/24/22 08:00 04/24/22 08:00 04/24/22 08:00 04/24/22 08:00 Laboratory Results - last 24 hr 04/23/22 11:41: POC Glucose 119 H I & O for Last 24 hours: Intake & Output 04/21/22 04/22/22 04/23/22 04/24/22 11:59 11:59 11:59 11:59 Intake Total 1191 / 1191 4582 / 4582 1164 / 1164 Output Total 600 / 600 Balance 1191 / 1191 4582 / 4582 564 / 564 Weight 180 lb 12.465 oz 184 lb 9.6 oz 182 lb 9.6 oz Narrative: She is sitting up in the chair. She is alert and appears in no distress. Color is good. Abdomen is soft and nondistended with minimal upper abdominal tenderness. Assessment and Plan (1) Acute pancreatitis Status: Acute Qualifiers: Pancreatitis type: other Acute pancreatitis complication: unspecified Qualified Code(s): K85.80 - Other acute pancreatitis without necrosis or infection Category: Medical Code(s): K85.90 - Acute pancreatitis without necrosis or infection, unspecified (2) Hypoglycemia Status: Acute Category: Medical Code(s): E16.2 - Hypoglycemia, unspecified (3) Elevated LFTs Status: Acute Category: Medical Code(s): R79.89 - Other specified abnormal findings of blood chemistry (4) Type 2 diabetes mellitus Status: Chronic Category: Medical Code(s): E11.9 - Type 2 diabetes mellitus without complications (5) Hypertension Status: Chronic Category: Medical Code(s): I10 - Essential (primary) hypertension (6) Hyperlipidemia Status: Chronic Category: Medical Code(s): E78.5 - Hyperlipidemia, unspecified (7) Arthritis Status: Chronic Category: Medical Code(s): M19.90 - Unspecified osteoarthritis, unspecified site - Assessment and plan all Dx Assessment and Plan for all problems:: She is stable for discharge today. Outpatient consultation with GI, Dr. Ramirez in [place], has been arranged for 04/30/2022. She will continue a bland low-fat diet. Recommend continuing MiraLAX at home. She is to also arrange appointment with her PCP.
--- NOTE | 2022-04-24 10:57 | PC.NURSE ---
pt has been discahrged from the unit via wheelchair with staff. Discharge education completed with pt and her daughter. verbalized understanding of follow up appts. No c/o pain @ this time. Pt will call tuesday for appt time on 04-30.
[2022-04-25 01:36] LABS: POC Glucose,Bedside 121 (70-110)
[2022-04-25 01:36] LABS: POC Glucose,Bedside 126 (70-110)
[2022-04-25 01:36] LABS: POC Glucose,Bedside 169 (70-110)
--- NOTE | 2022-04-25 23:34 | HMH.DCSUM ---
General - General Admission date:: 04/21/22 <Isidoro Rubio - 04/29/22 22:40> 04/21/22 <Sanjana Salazar - 04/25/22 23:37> Discharge date: 04/24/22 <Sanjana Salazar - 04/25/22 23:37> HPI HPI: Ms. Nieves is a 66-year-old female with a history of diabetes, hypertension, hyperlipidemia, and arthritis who began having abdominal pain and vomiting on Tuesday. She states she has had what she thought was reflux for quite a while but on Tuesday, she began vomiting and could not stop. The pain in her abdomen progressively worsened and on Tuesday she began having pain that radiated into her back. She presented to the emergency room for further evaluation and treatment. She had an abdominal pelvic CT which showed severe acute edematous pancreatitis with a significant amount of peripancreatic inflammatory free fluid. She also had trace bilateral pleural effusions. Her white blood cell count was elevated as were her AST and ALT. Interestingly, her amylase and lipase were normal. She was admitted and started on IV fluids, antiemetics, and pain management. <Sanjana Salazar - 04/25/22 23:37> Hospital Course Hospital Course: Patient was admitted and kept n.p.o. Her pain did begin improving. Her glucose was low and she had to be given an amp of D50. She had some diarrhea and a stool PCR was ordered. A sample was never provided. She was ordered some clear liquids and tolerated these well. By 04/24/2022, she had some occasional gas and bloating, but minimal pain. She was tolerating a low-fat diet. Outpatient consultation with Dr. Ramirez in [place] was arranged for 04/30/2022. She was stable to be discharged and will arrange an appointment with her PCP. She will continue a bland low-fat diet and MiraLAX at home. <Sanjana Salazar - 04/25/22 23:37> Objective Vital signs: Temp Pulse Resp BP Pulse Ox 98.1 F 108 H 16 149/75 H 98 04/24/22 08:00 04/24/22 08:00 04/24/22 08:00 04/24/22 08:00 04/24/22 08:00 <Isidoro Rubio - 04/29/22 22:40> Temp Pulse Resp BP Pulse Ox 98.1 F 108 H 16 149/75 H 98 04/24/22 08:00 04/24/22 08:00 04/24/22 08:00 04/24/22 08:00 04/24/22 08:00 <Sanjana Salazar - 04/25/22 23:37> Narrative: She is sitting up in the chair. She is alert and appears in no distress. Color is good. Abdomen is soft and nondistended with minimal upper abdominal tenderness. <Sanjana Salazar - 04/25/22 23:37> Results Labs on day of discharge: Labs from last 24 hours 04/24/22 04/23/22 04/23/22 05:47 20:00 16:15 POC Glucose 126 H 169 H 121 H <Sanjana Salazar 04/25/22 23:37> DS: Diagnosis - Discharge Diagnosis (1) Acute pancreatitis Status: Acute (2) Hypoglycemia Status: Acute (3) Elevated LFTs Status: Acute (4) Type 2 diabetes mellitus Status: Chronic (5) Hypertension Status: Chronic (6) Hyperlipidemia Status: Chronic (7) Arthritis Status: Chronic <Sanjana Salazar 04/25/22 23:34> (1) Acute pancreatitis Status: Acute (2) Hypoglycemia Status: Acute (3) Elevated LFTs Status: Acute (4) Type 2 diabetes mellitus Status: Chronic (5) Hypertension Status: Chronic (6) Hyperlipidemia Status: Chronic (7) Arthritis Status: Chronic <Isidoro Rubio - 04/29/22 22:40> Discharge Plan - Patient Discharge Instructions ACTIVITY: Continue current activity <Sanjana Salazar 04/25/22 23:37> DIET: low fat, low cholesterol <Sanjana Salazar 04/25/22 23:37> Patient Instructions: Acute Pancreatitis, DI for Pancreatitis <Isidoro Rubio - 04/29/22 22:40> Forms: <Isidoro Rubio - 04/29/22 22:40> - Follow up Plan Follow up with: Ishmael Ramirez [Referring] - 04/30/22 (please call for appointment) <Isidoro Rubio - 04/29/22 22:40> Disposition: Home, Self-Care <Isidoro Rubio - 04/29/22 22:40> Condition at discharge:: Improved <Sanjana Salazar - 07
== END 2022-04-24 10:50 | disposition home or self-care (01) | DRG 440 ==
LOC: UTC 13:55 → ER 16:49 → 2ND 19:13
PROVIDERS: Nurse Practitioner Family; Physician Assistant; Admitting Provider Family Medicine; Emergency Provider Emergency Medicine; PCP Emergency Medicine; Visit Provider Family Medicine
DX: K85.90 Acute pancreatitis without necrosis or infection, unspecified (principal); Z79.4 Long term (current) use of insulin; Z79.899 Other long term (current) drug therapy; I10 Essential (primary) hypertension; E78.5 Hyperlipidemia, unspecified; M19.90 Unspecified osteoarthritis, unspecified site; E11.649 Type 2 diabetes mellitus with hypoglycemia without coma; F32.A Depression, unspecified; Z79.84 Long term (current) use of oral hypoglycemic drugs
CPT/HCPCS: 36415; 74177; 80048; 80053; 81003; 82150; 82962; 83690; 85007; 85025; 99285; C9803; J2405; Q9967; U0003; U0005

== ENCOUNTER → 2022-05-08 11:01 | Outpatient (CLI) | payer MEDICARE, OTHER, SELFPAY | PROVIDERS: PCP Family Medicine; Visit Provider Surgery | DX: K80.10 Calculus of gallbladder with chronic cholecystitis without obstruction (principal); Z01.812 Encounter for preprocedural laboratory examination; Z20.822 Contact with and (suspected) exposure to COVID-19 | CPT/HCPCS: C9803; U0003; U0005 ==

== ENCOUNTER 2022-05-11 09:16 | Day surgery (SDC) | payer MEDICARE, OTHER, SELFPAY ==
[2022-05-06 12:59] VITALS: BMI 30.1
[2022-05-11] VITALS (7 sets, daily range): BP systolic 88–147; BP diastolic 53–87; PULSE 61–94; RESP 16–18; TEMP 36.6–36.7; O2SAT 94–100
[2022-05-11 09:53] LABS: POC Glucose,Bedside 114 (70-110)
--- NOTE | 2022-05-11 10:15 | P.PN_ITS ---
[facility] Anesthesia Checklist - Patient Identification Patient Identification: Arm Band - Structural Data Admitted From: Home Planned Operative Procedure/s: EGD Consent for Planned Operative Procedure(s) Verified: Yes Verified Documents: Surgical Consent, History and Physical - NPO Status Verified Time NPO: 00:00 - Additional verifications Anesthesia Reactions: No - Airway Assessment C-Spine Mobility Assessed: Yes (mp2) TMJ Mobility Assessed: Yes Dentition: Poor Dentition - Neurological Assessment Level of Consciousness: Awake, Alert - Anesthesia Plan Anesthesia Risk discussed: Yes Anesthesia Plan: Verified ASA Class: II Anesthesia Type: MAC [facility] History I have reviewed the patient's past medical history: Yes Medical History: Reports:: Depression, Diabetes Mellitus Type 2, Hyperlipidemia, Hypertension, MRSA Denies:: Cancer, Diabetes Mellitus Type 1, Internal Pacemaker, Seizures *Have you ever received a pneumonia vaccine?: Yes *Have you received a flu vaccine this season?: No Other Medical History: Reports: Arthritis, Other Anesthesia experience/problems:: nac Other Surgeries: Yes: Colonoscopy, Hysterectomy-Total, Other (left breast bx, MRSA left 5th finger). No: Pacemaker Amputation: No Fractures: No - *Social History Last grade of school completed: High school graduate Smoking Status: Never smoker Alcohol Intake: never Alcohol Intake Frequency:: other Substance Use Type: denies use *Occupational Status:: retired Housing: house Household Members: children *Travel in the last 8 weeks: None - Psychiatric History Pschychiatric History:: Reports:: Depression Family Hx:: Diabetes, Hypertension, Coronary Artery Disease, Cancer, Heart Attack
--- NOTE | 2022-05-11 10:32 | P.PCN_ITS ---
- Procedure: Date: 05/11/22 Patient Date of :: 1955 Procedure Performed:: Esophagogastroduodenoscopy with biopsy Indications:: Gastroesophageal reflux Performing Provider:: Eligio Machado MD Referring Provider:: Dr. Daniel Sedation:: Monitored anesthesia care Procedure:: After informed consent was obtained the patient was taken to the endoscopy suite. Sedation ensued after the patient was transferred to the left lateral decubitus position. Pulse, blood pressure, and oxygen saturation were monitored throughout the procedure. The endoscope was advanced beyond the duodenal bulb. Retroflexion within the gastric lumen was accomplished. The gastroscope was carefully removed and the patient was transferred to recovery in stable conditio n. Please see findings and specimens below for detail. Findings:: Gastroesophageal junction at 38 cm Moderate streaking gastritis Sliding hiatal hernia Mid gastric body polyp Focus of increased inflammatory response in prepyloric region Specimens:: Mucosal abnormality in prepyloric region Antral biopsy Mid gastric body polyp Recommendations:: Continue proton pump inhibition Follow-up pathology Complications:: No immediate Estimated blood obtained (mL): 1
== END 2022-05-11 11:20 | disposition home or self-care (01) ==
LOC: OUTP 09:18
PROVIDERS: PCP Family Medicine; Visit Provider Surgery
PROC: 0DJ08ZZ Inspection of Upper Intestinal Tract, Via Natural or Artificial Opening Endoscopic (ICD-10-PCS; CPT 43235; principal; 2022-05-11 10:30)
DX: K21.9 Gastro-esophageal reflux disease without esophagitis (principal); E11.9 Type 2 diabetes mellitus without complications; I10 Essential (primary) hypertension; E78.5 Hyperlipidemia, unspecified; Z79.899 Other long term (current) drug therapy; K29.50 Unspecified chronic gastritis without bleeding
CPT/HCPCS: 43239; 82962; 88305

== ENCOUNTER → 2022-05-25 10:42 | Outpatient (CLI) | payer MEDICARE, OTHER, SELFPAY ==
--- NOTE | 2022-05-25 10:55 | ECG_ITS ---
APPROVED REPORT Exam: Resting ECG HR:76 bpm ECG Measurements Heart Rate 76 AXES WA 160 P 34 QRSd 102 QRS -14 QT 396 T 51 QTc 426 Conclusion SINUS RHYTHM WITH OCCASIONAL VENTRICULAR PREMATURE COMPLEXES BORDERLINE ECG UNCONFIRMED REPORT Electronically signed by : Serafin Yousif MD 05/25/2022 21:21:31
== END ==
PROVIDERS: PCP Family Medicine; Visit Provider Surgery
DX: Z01.810 Encounter for preprocedural cardiovascular examination (principal); K80.10 Calculus of gallbladder with chronic cholecystitis without obstruction
CPT/HCPCS: 36415; 80053; 82150; 83690; 85025; 93005; C9803; U0003; U0005

== ENCOUNTER → 2022-05-25 14:21 | Outpatient (CLI) | payer MEDICARE, OTHER, SELFPAY ==
[2022-05-25 14:14] LABS: Basophils # 0.1 K/mm3 (0-0.2); Basophils % 0.9 % (0.1-2.0); Eosinophils # 0.4 K/mm3 (0.0-0.4); Hematocrit 40.5 % (37.0-47.0); Hemoglobin 12.3 g/dL (12.2-16.2); Lymphocytes # 1.7 K/mm3 (0.7-4.5); Lymphocytes % 23.4 % (10-50); Mean Corpuscular HGB Conc 30.3 g/dL (31.8-35.4); Mean Corpuscular Hemoglobin 27.3 pg (27.0-31.2); Mean Corpuscular Volume 90.3 fl (81-99); Mean Platelet Volume 10.2 fl (7.4-10.4); Monocytes # 0.4 K/mm3 (0.1-1.0); Monocytes % 5.7 % (1.7-9.3); Neutrophils # 4.7 K/mm3 (1.8-7.8); Platelet Count 325 K/mm3 (142-424); Red Blood Count 4.49 M/mm3 (4.20-5.40); Red Cell Distribution Width 15.4 % (11.5-17.5); White Blood Count 7.3 K/mm3 (4.8-10.8)
[2022-05-25 14:17] LABS: Alanine Aminotransferase 24 U/L (12-78); Albumin Level 4.3 g/dl (3.5-5.0); Albumin/Globulin Ratio 1.9 (1.1-1.8); Alkaline Phosphatase 60 U/L (38-126); Amylase 67 U/L (30-110); Anion Gap 14.6 mEq/L (5-15); Aspartate Amino Transferase 35 U/L (14-36); Bilirubin,Total 0.4 mg/dl (0.2-1.3); Blood Urea Nitrogen 16 mg/dl (7-17); Carbon Dioxide 25 mmol/L (22.0-30.0); Chloride 107 mmol/L (98-107); Estimated Glomerular Filt Rate 83 ml/min (>60); GFR (African American) 101 ML/MIN (>60); Globulin 2.3 g/dL (1.3-3.2); Glucose 87 mg/dl (74-100); Lipase 186 U/L (23-300); Potassium 4.6 mmoL/L (3.5-5.1); Sodium 142 mmol/L (136-145); Total Protein,Serum 6.6 g/dl (6.3-8.2)
== END ==
PROVIDERS: Visit Provider Surgery
DX: K80.10 Calculus of gallbladder with chronic cholecystitis without obstruction (principal); Z01.812 Encounter for preprocedural laboratory examination; Z20.822 Contact with and (suspected) exposure to COVID-19
CPT/HCPCS: 36415; 80053; 82150; 83690; 85025; C9803; U0003; U0005

== ENCOUNTER 2022-05-27 07:03 | Day surgery (SDC) | payer MEDICARE, OTHER, SELFPAY ==
[2022-05-27] VITALS (11 sets, daily range): BP systolic 136–171; BP diastolic 75–88; PULSE 76–93; RESP 13–18; TEMP 36.3–43; O2SAT 97–99; BMI 30.1
[2022-05-27 07:35] LABS: POC Glucose,Bedside 101 (70-110)
--- NOTE | 2022-05-27 07:54 | P.PN_ITS ---
[facility] PFS Medical History Acute pancreatitis Hyperlipidemia Hypertension Hypoglycemia Type 2 diabetes mellitus Surgical History History of hysterectomy Family History (Updated 05/27/22 @ 07:36 by Sussy Westbrook, RN) Family/Other Lung cancer Family history of cancer Brother Lung cancer Mother Family history of myocardial infarction Mother Family history of diabetes mellitus type II Social History (Updated 05/27/22 @ 07:39 by Sussy Westbrook, RN) Smoking Status: Never smoker second hand exposure: No alcohol intake: never substance use type: denies use current occupational status: retired household members: children housing: house current occupational exposures/hazards: No caffeine: No
--- NOTE | 2022-05-27 10:23 | EXP.OP.NOTE ---
Date of procedure: 05/27/22 Pre-op Diagnosis:: Chronic calculus cholecystitis Post-op Diagnosis:: Same Procedure performed:: Laparoscopic cholecystectomy Surgeon:: Eligio Machado MD SNUFF GRINDER AND SCREENER:: Gema Guillen Anesthesia: DANIEL Estimated blood loss (mL): 25 Operative findings:: Enlarged/distended gallbladder Multiple stones throughout gallbladder Operative note:: After informed consent was obtained, the patient was taken to the operating room and placed in the supine position. General anesthesia was induced and the abdomen was prepped and draped in a sterile fashion. After infiltration with local anesthetic an infraumbilical incision was made. A Veress needle was placed in position. The abdomen was insufflated. A 5 mm optical trocar was placed in position. Under direct visualization, a 12 mm trocar was placed in the subxiphoid position and 2 additional 5 mm trocars were placed in the right upper quadrant. The gallbladder was elevated up and over the liver margin. The tissue around the cystic duct was carefully dissected. 3 clips were placed proximally and the duct was transected with harmonic carmencita. Harmonic carmencita were then utilized to dissect the gallbladder away from the liver margin with careful attention to the control of the cystic artery. The gallbladder was placed in a retrieval bag and removed through the subxiphoid trocar site. The right upper quadrant was thoroughly irrigated. No active bleeding or bile leak was noted. Fascia at the subxiphoid trocar site was reapproximated utilizing 0 Ethibond. The remaining trocars were removed. All wounds were irrigated and skin was closed with 4-0 Monocryl in a subcuticular fashion. Steri-Strips were applied. The patient's anesthetic agents were reversed and extubation was completed prior to transfer to recovery in stable condition. Condition: stable Disposition: PACU Complications:: No immediate
--- NOTE | 2022-05-27 10:30 | P.PNANES_ITS ---
[facility] Anesthesia Record Part I Anesthesia Record I Intake, IV Amount: 500 Estimated blood loss (mL): 25 Urine output (mL): 0 Blood Pressure: 162/79 SaO2: 97 Pulse Rate: 93 Respiratory Rate: 14 Temperature: 98.5 F Patient is:: Drowsy and Oral/Nasal airway Stable to PACU at:: 10:27
[2022-05-27 10:37] LABS: POC Glucose,Bedside 122 (70-110)
--- NOTE | 2022-05-27 10:53 | SUR.PHASEI ---
LATE ENTRY 1032 BS obtained with result of Minor uGillen CRNA notified. No new orders at this time.
--- NOTE | 2022-05-27 11:01 | SUR.PHASEI ---
1053 called and gave detailed report to Ila Matrinez RN 1057 transported via stretcher to post op. vital signs stable. no pain reported. left in stable condition with Ila Martinez RN and Marty Beckett RN at bedside.
--- NOTE | 2022-05-31 07:41 | EXP.ANES.II ---
[facility] Anesthesia Record Part II Anesthesia Record Part II Discharge Time: 10:57 Destination: Surgical Day Care (OP Surgery) PACU nurse assessment reviewed?: Yes Patient Condition:: Good Anesthesia Complications:: None Swallowing reflex intact?: Yes Cyanosis?: No Blood Pressure: 150/79 Pulse Rate: 83 Temperature: 97.7 F Mental Status: Alert & Oriented Pain level:: 0 Nausea and/or vomitting:: None Intake, IV Amount: 0
[2022-05-31 07:42] VITALS: BP 150/79; PULSE 83; TEMP 36.5
== END 2022-05-27 11:58 | disposition home or self-care (01) ==
PROVIDERS: PCP Family Medicine; Visit Provider Surgery
PROC: 0FT44ZZ Resection of Gallbladder, Percutaneous Endoscopic Approach (ICD-10-PCS; CPT 47562; principal; 2022-05-27 08:45)
DX: K80.10 Calculus of gallbladder with chronic cholecystitis without obstruction (principal); E11.9 Type 2 diabetes mellitus without complications; E78.5 Hyperlipidemia, unspecified; I10 Essential (primary) hypertension; Z79.899 Other long term (current) drug therapy
CPT/HCPCS: 47562; 82962; 88304; 96374; J0131; J2405

== ENCOUNTER → 2022-06-22 16:38 | Outpatient (CLI) | payer MEDICARE, OTHER, SELFPAY ==
--- NOTE | 2022-06-22 16:39 | CA_ITS ---
FINAL REPORT TECHNIQUE: Ultrasound images of the deep venous system were obtained from the left groin to the calf veins. CLINICAL HISTORY: swelling and redness to left knee/leg, patient denies trauma. States it began hurting last Tuesday with some swelling. On 06/19 the pain and swelling became much worse making it hard to even bear weight. She takes an 81 mg ASA daily. FINDINGS: The deep venous system is normally compressible. Normal flow is identified. IMPRESSION: No evidence of left lower extremity DVT. Reviewed, Interpreted and Dictated by Toro Whitney MD Transcribed by Amber Desai Authenticated and [facility]
== END ==
PROVIDERS: PCP Family Medicine; Visit Provider Family Medicine
DX: M25.562 Pain in left knee; M25.462 Effusion, left knee; M79.605 Pain in left leg; E11.65 Type 2 diabetes mellitus with hyperglycemia; Z79.84 Long term (current) use of oral hypoglycemic drugs
CPT/HCPCS: 93971

== ENCOUNTER → 2022-06-23 12:22 | Outpatient (CLI) | payer MEDICARE, OTHER, SELFPAY ==
--- NOTE | 2022-06-23 12:50 | XR_ITS ---
FINAL REPORT CLINICAL HISTORY: left knee pain, bruising and swelling FINDINGS: LEFT KNEE 3 views of the left knee were obtained. There is no acute fracture or dislocation. There is a small joint effusion. There is mild medial compartment joint space narrowing. Osteophytes are seen at the undersurface of the patella. There is mild irregularity along the lateral margin of the lateral femoral condyle. Soft tissues are without acute abnormality. IMPRESSION: Degenerative changes and small joint effusion without acute bony abnormality. Reviewed, Interpreted and Dictated by Toro Whitney MD Transcribed by Amber Desai Authenticated and . [facility]
[2022-06-23 14:18] LABS: Basophils # 0.1 K/mm3 (0-0.2); Basophils % 0.8 % (0.1-2.0); Eosinophils # 0.2 K/mm3 (0.0-0.4); Eosinophils % 3.1 % (0.1-12.0); Hemoglobin 9.3 g/dL (12.2-16.2); Lymphocytes # 1.6 K/mm3 (0.7-4.5); Lymphocytes % 21.8 % (10-50); Mean Corpuscular Hemoglobin 28.9 pg (27.0-31.2); Mean Corpuscular Volume 90.2 fl (81-99); Mean Platelet Volume 9.8 fl (7.4-10.4); Monocytes # 0.4 K/mm3 (0.1-1.0); Monocytes % 5.8 % (1.7-9.3); Neutrophils % 68.5 % (37.0-80.0); Platelet Count 336 K/mm3 (142-424); Red Blood Count 3.21 M/mm3 (4.20-5.40); Red Cell Distribution Width 15.7 % (11.5-17.5); White Blood Count 7.3 K/mm3 (4.8-10.8)
[2022-06-23 14:25] LABS: Prothrombin Time 10.8 seconds (10.1-12.5)
[2022-06-23 14:38] LABS: Alanine Aminotransferase 21 U/L (12-78); Albumin Level 3.9 g/dl (3.5-5.0); Albumin/Globulin Ratio 1.8 (1.1-1.8); Alkaline Phosphatase 66 U/L (38-126); Anion Gap 17.2 mEq/L (5-15); Aspartate Amino Transferase 29 U/L (14-36); Bilirubin,Total 0.7 mg/dl (0.2-1.3); Blood Urea Nitrogen 14 mg/dl (7-17); Calcium 9.6 mg/dl (8.4-10.2); Carbon Dioxide 23 mmol/L (22.0-30.0); Chloride 105 mmol/L (98-107); Estimated Glomerular Filt Rate 72 ml/min (>60); GFR (African American) 87 ML/MIN (>60); Globulin 2.2 g/dL (1.3-3.2); Glucose 109 mg/dl (74-100); Potassium 4.2 mmoL/L (3.5-5.1); Sodium 141 mmol/L (136-145); Total Protein,Serum 6.1 g/dl (6.3-8.2); Uric Acid 3.7 mg/dl (2.5-6.2)
[2022-06-23 14:45] LABS: C-Reactive Protein 20.1 mg/L (0-4)
[2022-06-23 15:01] LABS: Erythrocyte Sedimentation Rate 27 mm/hr (0-30)
== END ==
PROVIDERS: PCP Family Medicine; Visit Provider Family Medicine
DX: M25.462 Effusion, left knee (principal); L02.511 Cutaneous abscess of right hand; Z01.818 Encounter for other preprocedural examination; Z51.81 Encounter for therapeutic drug level monitoring
CPT/HCPCS: 36415; 73562; 80053; 84550; 85025; 85610; 85651; 85730; 86140

== ENCOUNTER → 2022-07-01 15:51 | Outpatient (CLI) | payer MEDICARE, OTHER, SELFPAY ==
--- NOTE | 2022-07-01 15:51 | MR_ITS ---
PROCEDURE INFORMATION: Exam: MR Left Lower Extremity Joint Without Contrast, Knee Exam date and time: 07/01/2022 4:28 PM Age: 66 years old Clinical indication: Pain; Knee; Left; Additional info: Left knee pain. Left knee pain , brusing, swelling on posterior and anterior surface of knee that radiateds down leg. Medial sided knee pain. X 1.5 weeks. No injury/truama TECHNIQUE: Imaging protocol: Magnetic resonance imaging of the Left lower extremity joint without contrast. Exam focused on the knee. COMPARISON: CR XR KNEE LT 3V 06/23/2022 1:00 PM FINDINGS: Bones and cartilage: Essentially full-thickness loss of articular cartilage lateral facet of the patella. Minimal degenerative change elsewhere. Joint spaces: Large effusion with fluid extending into the suprapatellar bursa high than the field of view. Septations and some limited debris within the fluid. 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 Medial meniscus: Limited degenerative intrasubstance signal change in the menisci without discrete tear. Lateral meniscus: Unremarkable. No tear. Anterior cruciate ligament: Unremarkable. No tear. Posterior cruciate ligament: Unremarkable. No tear. Medial capsule and supporting structures: Unremarkable. No tear. Lateral capsule and supporting structures: Unremarkable. No tear. Extensor mechanism of knee: Unremarkable. No tear. Muscles: Unremarkable. Soft tissues: See Joint spaces finding. IMPRESSION: 1. Large effusion with fluid extending into the suprapatellar bursa high than the field of view. Septations and some limited debris within the fluid. 2. 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 3. Essentially full-thickness loss of articular cartilage lateral facet of the patella. Minimal degenerative change elsewhere.
== END ==
PROVIDERS: PCP Family Medicine; Visit Provider Orthopaedic Surgery
DX: M25.562 Pain in left knee (principal)
CPT/HCPCS: 73721

== ENCOUNTER → 2022-08-16 06:17 | Outpatient (CLI) | payer MEDICARE, OTHER, SELFPAY ==
[2022-08-16 17:50] LABS: Basophils # 0.1 K/mm3 (0-0.2); Basophils % 1.4 % (0.1-2.0); Eosinophils # 0.3 K/mm3 (0.0-0.4); Eosinophils % 6.3 % (0.1-12.0); Hematocrit 40.7 % (37.0-47.0); Hemoglobin 12.6 g/dL (12.2-16.2); Lymphocytes # 1.2 K/mm3 (0.7-4.5); Lymphocytes % 23.7 % (10-50); Mean Corpuscular Hemoglobin 28.1 pg (27.0-31.2); Mean Corpuscular Volume 90.5 fl (81-99); Mean Platelet Volume 10.2 fl (7.4-10.4); Monocytes # 0.3 K/mm3 (0.1-1.0); Monocytes % 5.2 % (1.7-9.3); Neutrophils # 3.3 K/mm3 (1.8-7.8); Neutrophils % 63.4 % (37.0-80.0); Platelet Count 329 K/mm3 (142-424); Red Cell Distribution Width 14.5 % (11.5-17.5); White Blood Count 5.2 K/mm3 (4.8-10.8)
[2022-08-16 17:55] LABS: Alanine Aminotransferase 23 U/L (12-78); Albumin Level 4.5 g/dl (3.5-5.0); Albumin/Globulin Ratio 1.9 (1.1-1.8); Alkaline Phosphatase 68 U/L (38-126); Anion Gap 16.8 mEq/L (5-15); Aspartate Amino Transferase 34 U/L (14-36); Bilirubin,Total 0.3 mg/dl (0.2-1.3); Blood Urea Nitrogen 27 mg/dl (7-17); Calcium 10.4 mg/dl (8.4-10.2); Carbon Dioxide 25 mmol/L (22.0-30.0); Chloride 103 mmol/L (98-107); Chol/HDL Ratio 3.1 (1-3.5); Cholesterol 129 mg/dl (140-200); Estimated Glomerular Filt Rate 62 ml/min (>60); GFR (African American) 76 ML/MIN (>60); Globulin 2.4 g/dL (1.3-3.2); Glucose 87 mg/dl (74-100); HDL Cholesterol 42 mg/dl (40-60); Potassium 4.8 mmoL/L (3.5-5.1); Sodium 140 mmol/L (136-145); Total Protein,Serum 6.9 g/dl (6.3-8.2); Triglycerides 110 mg/dl (30-150); VLDL Cholesterol 22 mg/dL (0-40)
[2022-08-16 18:06] LABS: Direct LDL Cholesterol 55.24 mg/dL (100-129)
[2022-08-16 18:10] LABS: Hemoglobin A1C 4.7 % (4.0-6.0)
[2022-08-16 18:13] LABS: Free T4 (Free Thyroxine) 1.27 ng/dl (0.78-2.19)
[2022-08-16 18:28] LABS: Thyroid Stimulating Hormone 1.58 uIU/mL (0.465-4.68)
== END ==
PROVIDERS: PCP Family Medicine; Visit Provider Family Medicine
DX: E11.9 Type 2 diabetes mellitus without complications (principal); E78.5 Hyperlipidemia, unspecified; Z79.84 Long term (current) use of oral hypoglycemic drugs
CPT/HCPCS: 80053; 80061; 83036; 84439; 84443; 85025

== ENCOUNTER → 2022-08-19 12:25 | Outpatient (CLI) | payer MEDICARE, OTHER, SELFPAY ==
[2022-08-19 19:48] LABS: Microalbumin/Creatinine Ratio 48.8
[2022-08-19 19:50] LABS: Creatinine,Urine Random 25 mg/dL (Not Estab.)
== END ==
PROVIDERS: PCP Family Medicine; Visit Provider Family Medicine
DX: E11.9 Type 2 diabetes mellitus without complications (principal); Z79.84 Long term (current) use of oral hypoglycemic drugs
CPT/HCPCS: 82043; 82570

== ENCOUNTER → 2022-09-01 13:07 | Outpatient (CLI) | payer MEDICARE, OTHER, SELFPAY ==
--- NOTE | 2022-09-01 13:08 | MM_ITS ---
PROCEDURE INFORMATION: Exam: MG Bilateral Screening 3D Mammography Exam date and time: 09/01/2022 1:00 PM Age: 66 years old Clinical indication: Screening. Paternal aunts had breast cancer. TECHNIQUE: Imaging protocol: Bilateral Screening tomosynthesis and 2D mammography including computer-aided detection (CAD) when performed. COMPARISON: 1. MG MM DIG SCREENING MAMM BI W/CAD 05/29/2021 9:52 AM 2. MG MM DIG SCREENING MAMM BI W/CAD 05/27/2020 10:00 AM 3. MG MM DIG SCREENING MAMM BI W/CAD 05/25/2019 10:44 AM 4. MG SCBI MM Dig screening mamm BI w/CAD 05/23/2018 9:14 AM FINDINGS: MAMMOGRAPHY: Breast composition: There are scattered areas of fibroglandular density. Mass: None. Architectural distortion: Stable diffuse architectural distortion with history of reduction mammoplasty. Calcifications: No suspicious calcifications. Asymmetric density: None. Skin thickening: None. Axillary adenopathy: None. IMPRESSION: No mammographic evidence of malignancy. Annual screening is recommended unless otherwise clinically indicated. ASSESSMENT: BI-RADS Category 2: Benign
== END ==
PROVIDERS: PCP Family Medicine; Visit Provider Family Medicine
DX: Z12.31 Encounter for screening mammogram for malignant neoplasm of breast (principal)
CPT/HCPCS: 77063; 77067

== ENCOUNTER 2022-11-09 09:28 | Day surgery (SDC) | payer MEDICARE, OTHER, SELFPAY ==
[2022-11-09 09:41] VITALS: BP 185/89; PULSE 103; RESP 20; TEMP 37.5; O2SAT 98; BMI 29.2
[2022-11-09 10:02] LABS: POC Glucose,Bedside 99 (70-110)
[2022-11-09 10:05] VITALS: O2SAT 97
--- NOTE | 2022-11-09 10:37 | HMH.SCOPE ---
Procedure: Date: 11/09/22 Patient Date of :: 1955 Procedure Performed:: Colonoscopy with polypectomy by means other than snare Indications:: History of colon polyps Performing Provider:: Eligio Machado MD Referring Provider:: . Sedation:: Monitored anesthesia care Procedure:: After informed consent was obtained the patient was taken to the endoscopy suite. Sedation ensued after the patient was transferred to the left lateral decubitus position. Pulse, blood pressure, and oxygen saturation were monitored throughout the procedure. Digital rectal exam revealed no significant abnormality. The colonoscope was placed in position. The entire colon was evaluated. The colonoscope was carefully removed and the patient was transferred to recovery in stable condition. Please see findings and specimens below for detail. Findings:: Very poor bowel preparation Significant tortuosity Sigmoid diverticulosis Small polyp at 20 cm Specimens:: Polyp at 20 cm (cold biopsy forceps) Recommendations:: Likely repeat colonoscopy in 6-12 months with extended bowel preparation Complications:: Poor bowel preparation Estimated blood obtained (mL): 1
[2022-11-09 10:38] VITALS: BP 111/63; PULSE 76; RESP 14; TEMP 37; O2SAT 97
--- NOTE | 2022-11-09 10:42 | P.PN_ITS ---
[facility] Disclaimer: The information contained in this section may have been updated after the patient was seen, as this information can be updated by other users. Medical History Acute pancreatitis Hyperlipidemia Hypertension Hypoglycemia Type 2 diabetes mellitus Surgical History History of cholecystectomy History of hysterectomy History of laparoscopic cholecystectomy Family History Family/Other Lung cancer Family history of cancer Brother Lung cancer Mother Family history of myocardial infarction Mother Family history of diabetes mellitus type II Social History Smoking Status: Never smoker second hand exposure: No alcohol intake: never substance use type: denies use current occupational status: retired Travel in the last 8 weeks: None household members: children housing: house lives independently: No marital status: education level: high school current occupational exposures/hazards: No caffeine: No do you feel safe at home: Yes victim of physical abuse: No victim of emotional abuse: No victim of sexual abuse: No would you like helpful sources: No [facility] Anesthesia Checklist Patient Identification Patient Identification: Arm Band and Family Structural Data Admitted From: Home Planned Operative Procedure/s: Colonoscopy Consent for Planned Operative Procedure(s) Verified: Yes Verified Documents: Surgical Consent and History and Physical NPO Status Verified Time NPO: 00:00 Additional verifications Patient : No Anesthesia Reactions: No Hx Blood Transfusions: No Blood Transfusion Reaction: No Cephalosporin Allergy: No Previous Colonoscopy: No Airway Assessment C-Spine Mobility Assessed: Yes TMJ Mobility Assessed: Yes Dentition: Poor Dentition Neurological Assessment Level of Consciousness: Awake, Alert, Appropriate and Follows Commands Hx Seizures: No Numbness or tingling in extremities: No Anesthesia Plan Anesthesia Risk discussed: Yes ASA Class: III Anesthesia Type: MAC Preoperative Comments Pre-Operative Comments: NIDDM. HTN. HDL.
[2022-11-09 10:48] VITALS: BP 128/72; PULSE 80; RESP 16; O2SAT 98
[2022-11-09 10:58] VITALS: BP 106/60; PULSE 69; RESP 16; O2SAT 99
[2022-11-09 11:08] VITALS: BP 117/76; PULSE 71; RESP 16; TEMP 37; O2SAT 99
== END 2022-11-09 11:08 | disposition home or self-care (01) ==
PROVIDERS: PCP Family Medicine; Visit Provider Surgery
PROC: 0DJD8ZZ Inspection of Lower Intestinal Tract, Via Natural or Artificial Opening Endoscopic (ICD-10-PCS; principal; 2022-11-09 10:30)
DX: Z12.11 Encounter for screening for malignant neoplasm of colon (principal); D12.6 Benign neoplasm of colon, unspecified; Z86.010 Personal history of colon polyps; K57.30 Diverticulosis of large intestine without perforation or abscess without bleeding; Z79.899 Other long term (current) drug therapy; E11.9 Type 2 diabetes mellitus without complications
CPT/HCPCS: 45380; 82962; 88305

== ENCOUNTER → 2023-02-09 10:00 | Outpatient (CLI) | payer MEDICARE, OTHER, SELFPAY ==
[2023-02-09 17:46] LABS: Chol/HDL Ratio 2.5 (1-3.5); Cholesterol 134 mg/dl (140-200); HDL Cholesterol 53 mg/dl (40-60); Triglycerides 117 mg/dl (30-150); VLDL Cholesterol 23 mg/dL (0-40)
[2023-02-09 17:58] LABS: Direct LDL Cholesterol 63.39 mg/dL (100-129)
[2023-02-09 19:27] LABS: Hemoglobin A1C 5.2 % (4.0-6.0)
== END ==
PROVIDERS: PCP Family Medicine; Visit Provider Family Medicine
DX: E55.9 Vitamin D deficiency, unspecified (principal); E78.5 Hyperlipidemia, unspecified; E16.2 Hypoglycemia, unspecified
CPT/HCPCS: 80061; 82306; 83036

== ENCOUNTER → 2023-09-14 16:36 | Outpatient (CLI) | payer MEDICARE, OTHER, SELFPAY ==
[2023-09-14 18:03] LABS: Hemoglobin A1C 4.9 % (4.0-6.0)
== END ==
PROVIDERS: PCP Family Medicine; Visit Provider Family Medicine
DX: E11.9 Type 2 diabetes mellitus without complications (principal); Z79.84 Long term (current) use of oral hypoglycemic drugs
CPT/HCPCS: 83036

== ENCOUNTER 2024-01-19 10:02 | Outpatient (CLI) | payer MEDICARE, OTHER, SELFPAY ==
[2024-01-19 16:49] LABS: Basophils # 0.1 K/mm3 (0-0.2); Basophils % 1.1 % (0.1-2.0); Eosinophils # 0.3 K/mm3 (0.0-0.4); Hematocrit 39.9 % (37.0-47.0); Hemoglobin 12.8 g/dL (12.2-16.2); Lymphocytes # 1.1 K/mm3 (0.7-4.5); Lymphocytes % 17.1 % (10-50); Mean Corpuscular HGB Conc 32.2 g/dL (31.8-35.4); Mean Corpuscular Hemoglobin 29.4 pg (27.0-31.2); Mean Corpuscular Volume 91.4 fl (81-99); Mean Platelet Volume 11.2 fl (7.4-10.4); Monocytes # 0.4 K/mm3 (0.1-1.0); Monocytes % 6.2 % (1.7-9.3); Neutrophils # 4.4 K/mm3 (1.8-7.8); Neutrophils % 70.6 % (37.0-80.0); Platelet Count 271 K/mm3 (142-424); Red Blood Count 4.36 M/mm3 (4.20-5.40); Red Cell Distribution Width 14.6 % (11.5-17.5); White Blood Count 6.2 K/mm3 (4.8-10.8)
[2024-01-19 16:59] LABS: Alanine Aminotransferase 28 U/L (12-78); Albumin Level 4.4 g/dl (3.5-5.0); Albumin/Globulin Ratio 1.8 (1.1-1.8); Alkaline Phosphatase 73 U/L (38-126); Anion Gap 13.6 mEq/L (5-15); Aspartate Amino Transferase 33 U/L (14-36); Bilirubin,Total 0.5 mg/dl (0.2-1.3); Blood Urea Nitrogen 29 mg/dl (7-17); Carbon Dioxide 23 mmol/L (22.0-30.0); Chloride 111 mmol/L (98-107); Chol/HDL Ratio 3.6 (1-3.5); Cholesterol 137 mg/dl (140-200); Estimated Glomerular Filt Rate 62 ml/min (>60); GFR (African American) 75 ML/MIN (>60); Globulin 2.4 g/dL (1.3-3.2); Glucose 100 mg/dl (74-100); HDL Cholesterol 38 mg/dl (40-60); Potassium 4.6 mmoL/L (3.5-5.1); Sodium 143 mmol/L (136-145); Total Protein,Serum 6.8 g/dl (6.3-8.2); Triglycerides 120 mg/dl (30-150); VLDL Cholesterol 24 mg/dL (0-40)
[2024-01-19 17:10] LABS: Direct LDL Cholesterol 64.82 mg/dL (100-129)
[2024-01-19 17:29] LABS: Thyroid Stimulating Hormone 1.43 uIU/mL (0.465-4.68)
[2024-01-19 19:04] LABS: Hemoglobin A1C 5.4 % (4.0-6.0)
== END 2024-01-19 23:59 | disposition home or self-care (01) ==
LOC: LAB.DROPOF 01-20 10:03
PROVIDERS: PCP Family Medicine; Visit Provider Family Medicine
DX: E78.5 Hyperlipidemia, unspecified (principal); E11.9 Type 2 diabetes mellitus without complications; Z79.84 Long term (current) use of oral hypoglycemic drugs
CPT/HCPCS: 80053; 80061; 83036; 84443; 85025

== ENCOUNTER 2024-05-08 11:31 | Outpatient (CLI) | payer MEDICARE, OTHER, SELFPAY | END 2024-05-08 23:59 | disposition home or self-care (01) | LOC: LAB.DROPOF 05-09 11:32 | PROVIDERS: PCP Nurse Practitioner; Visit Provider Nurse Practitioner | DX: B35.1 Tinea unguium (principal) | CPT/HCPCS: 87102; 87206; 87220 ==

== ENCOUNTER 2024-05-22 16:16 | Outpatient (CLI) | payer MEDICARE, OTHER, SELFPAY ==
[2024-05-22 18:12] LABS: Hemoglobin A1C 5.2 % (4.0-6.0)
[2024-05-22 19:35] LABS: Blood Urea Nitrogen 28 mg/dl (7-17); Carbon Dioxide 23 mmol/L (22.0-30.0); Chloride 109 mmol/L (98-107); Estimated Glomerular Filt Rate 71 ml/min (>60); GFR (African American) 86 ML/MIN (>60); Glucose 86 mg/dl (74-100); Sodium 141 mmol/L (136-145)
== END 2024-05-22 23:59 | disposition home or self-care (01) ==
LOC: LAB.DROPOF 05-23 16:16
PROVIDERS: PCP Family Medicine; Visit Provider Family Medicine
DX: E11.65 Type 2 diabetes mellitus with hyperglycemia; Z79.84 Long term (current) use of oral hypoglycemic drugs
CPT/HCPCS: 80048; 83036

== ENCOUNTER 2024-05-25 15:55 | Outpatient (CLI) | payer MEDICARE, OTHER, SELFPAY ==
--- NOTE | 2024-05-25 15:59 | XR_ITS ---
FINAL REPORT CLINICAL HISTORY: right shoulder pain and reduced ROM FINDINGS: 2 views of the right shoulder were obtained. There is no prior exam for comparison. There is no fracture or dislocation. There is a high riding humeral head which abuts the undersurface of the AC joint likely related to chronic rotator cuff tear. Degenerative joint disease is noted. Soft tissues are normal. IMPRESSION: Degenerative joint disease and likely chronic rotator cuff tear without acute osseous abnormality of the right shoulder. Reviewed, Interpreted and Dictated by Kimberly Martínez MD Transcribed by Amber Desai Authenticated and [facility]
== END 2024-05-25 23:59 | disposition home or self-care (01) ==
LOC: RAD 15:56
PROVIDERS: PCP Family Medicine; Visit Provider Family Medicine
DX: M25.511 Pain in right shoulder (principal)
CPT/HCPCS: 73030

== ENCOUNTER 2024-05-31 08:15 | Outpatient (CLI) | payer MEDICARE, OTHER, SELFPAY ==
[2024-05-31 17:04] LABS: Creatinine,Urine Random 35 mg/dL (Not Estab.)
[2024-05-31 17:10] LABS: Microalbumin/Creatinine Ratio 42.2
== END 2024-05-31 23:59 | disposition home or self-care (01) ==
LOC: LAB.DROPOF 06-01 10:25
PROVIDERS: PCP Family Medicine; Visit Provider Family Medicine
DX: E11.65 Type 2 diabetes mellitus with hyperglycemia (principal)
CPT/HCPCS: 82043; 82570

== ENCOUNTER 2024-07-24 13:00 | Outpatient (RCR) | payer MEDICARE, OTHER, SELFPAY ==
--- NOTE | 2024-05-31 11:05 | HMH.PTOPEV ---
PT Outpatient Evaluation Rehab PT Outpatient Evaluation Start: 05/31/24 08:46 Freq: Status: Active Protocol: Document 05/31/24 08:47 SARMAD (Rec: 05/31/24 10:08 [email or web address] [id number]) E-signed By Chema Ge, PT Outpatient Therapy Subjective History Subjective History Pt. is a 68 year old female who presents to [facility] Outpatient Physical Therapy Services in [place] for the initial evaluation this date( 05/31/24) w/ c/o chronic and constant LLE knee P!, edema, and popping of insidious onset two years ago that has progressively been getting worse. Pt. describes her lifestyle to be more sedentary in the past two years secondary to worsening in symptom complaint. Pt. reports having diagnostic imaging including MRI and a radiograph of the LLE knee two years ago indicating osteoarthritis and edema at the time. Pt. denies having injections for current complaint in the past. Pt. reports having some symptom relief w/ resting, icing, and using the Voltaren Gel. Pt. reports she has to get around w/ her FWW and SPC secondary to fear of falling. Pt. also c /o chronic and intermittent RUE shldr. P! and stiffness of insidious onset that has progressively been getting worse over the last two years. Pt. reports symptoms worsens when she tries to use it, states having to use her LUE to move her RUE secondary to P ! and overall weakness in the shldr. Recent diagnostic imaging indicates increase osteoarthritis per pt. report, denies having any injections for complaint. Pt. reports seeing Dr. Harris next Tuesday( 06/05/24) regarding her c/o RUE shldr. P!. Pt. reports having symptom relief w/ resting her shoulder. Pt. reports having difficulty using her FWW secondary to having an increase in RUE shldr. P!. Current medication list includes Lisinopril, Atorvastatin, Pantoprazole, Oxybutynin, Beta-Candida, Amlodipine, Tylenol, Meloxicam , Metformin, Diclofenac, Fish Oil, Aspirin, and Fenofibrate. PMH includes Lumbar Spine DDD , Scoliosis, Osteoarthritis, DM-II, Hypertension, GERD, Hysterectomy, and a Cholecystectomy. New diagnosis of cancer in past 12 No months? Chief Complaint Pain,Stiff,Swelling,Catches/ Locks,Gives out/Unstable, Weakness Symptom Type Ache,Throb,Sharp,Stabbing, Burning Symptoms Relieved By Rest/Positioning,Ice,Brace/ Support,Prescription Meds Symptoms Aggravated By Standing,Bending/Stooping, Physical Activity,Twisting, Walking,Lifting Prior Functional Limitations None Current Functional Limitations Reaching,Lifting,Housework, Dressing,Standing,Squatting, Recreation Activity,Walking, Stairs,Balance Symptom Description Constant but Variable,Activity Dependent Level of pain today (0-10) 4 Pain scale - at its best (0-10) 2 Pain scale - at its worst (0-10) 9 Shoulder/Elbow Eval Shoulder Objective Measurements Palpation Tenderness tenderness shoulder exam standard right tenderness over the bicipital tendon right shoulder exam standard tenderness over the SA bursa shoulder right exam standard Shoulder Palpation Findings Tenderness Shoulder Palpation Overall Comment grade 4 +TTP to TTP assessment above Posture Shoulder Posture Sitting Position (R) Rounded,(R) Forward,(R) Elevated Shoulder Posture Standing Position (R) Rounded,(R) Forward,(R) Elevated Scapula Posture Sitting Position (R) Protracted,(R) Elevated,(R ) Winged Scapular Posture Standing Position (R) Protracted,(R) Elevated,(R ) Winged Flexibilty Deficits Latissmus Dorsi Muscle Length (R) Severe Tightness Pectoralis Minor Muscle Length (R) Severe Tightness Pectoralis Major Muscle Length (R) Severe Tightness Shoulder External Rotators Muscle Length (R) Severe Tightness Shoulder Internal Rotators Muscle Length (R) Severe Tightness Supraspinatus Muscle Length (R) Severe Tightness Teres Major Muscle Length (R) Severe Tightness Upper Trapezius Muscle Length (R) Severe Tightness Levaetor Scapulae Muscle Length (R) Severe Tightness Shoulder ROM Right Shoulder ROM Limitations Soft Tissue Tightness,Muscle Weakness,Muscle Tone,Pain Shoulder Abduction Active Range of 34 Motion (degrees) Shoulder Abduction Passive Range of 71 Motion (degrees) Shoulder Flexion Active Range of Motion 27 (degrees) Query Text: Shoulder Flexion Passive Range of Motion 34 (degrees) Shoulder External Rotation Active Range +7 of Motion (degrees) Shoulder External Rotation Passive Range +1 of Motion (degrees) Shoulder Internal Rotation Active Range 29 of Motion (degrees) Shoulder Internal Rotation Passive Range 44 of Motion (degrees) Shoulder Extension Active Range of 54 Motion (degrees) Shoulder Extension Passive Range of 59 Motion (degrees) pain with active ROM shoulder exam right standard pain with passive ROM shoulder exam right standard decreased ROM shoulder exam standard right Shoulder MMT Shoulder Abduction Strength Grade 3 Fair Shoulder Extension Strength Grade 3+ Fair+ Shoulder Flexion Strength Grade 3 Fair Shoulder External Rotation Strength 3- Fair- Grade Shoulder Internal Rotation Strength 4- Good- Grade Shoulder Strength Patient Testing Sitting Position Shoulder Muscle Tone Shoulder Flexor Muscle Tone Description Moderate Hypertonicity Shoulder Extensors Muscle Tone Severe Hypertonicity Description Shoulder Lateral Rotator Muscle Tone Severe Hypertonicity Description Shoulder Special Tests impingement sign present shoulder exam right standard Shoulder Drop Arm Test Positive Right Shoulder Empty Can (Supraspinatus) Test Positive Right Shoulder Gautam-Ronak Impingement Positive Right Test Elbow Objective Measurements Accessory Movements Right Shoulder Girdle Accessory Movements that Glenohumeral Ant [place], Elicit Symptoms Glenohumeral Post [place], Glenohumeral Inf [place] Hip/Knee Eval Gait Observation General Gait Pattern Observation Antalgic Gait,Decrease Weight Bear (R),Decrease Stride Lngth (L) Assistive Device Assistive Devices Rolling / Wheeled Walker Palpation Tenderness left Knee Palpation Finding Tenderness Knee Palpation Overall Comment grade 4 +TTP to medial/lateral jt. line, and medial/lateral femoral condyle MMT Hip Flexion Strength Grade 4- Good- Hip Abduction Strength Grade 4- Good- Hip Adduction Strength Grade 4- Good- Hip Extension Strength Grade 4- Good- Gluteus Lloyd Strength Grade 4- Good- Hip External Rotation Strength Grade 3+ Fair+ Hip Internal Rotation Strength Grade 3+ Fair+ Knee Extension Strength Grade 4- Good- Knee Flexion Strength Grade 4- Good- Knee Extensors Muscle Tone Description Severe Hypertonicity Knee Flexors Muscle Tone Description Severe Hypertonicity ROM Knee Extension Active Range of Motion ( +4 degrees) Knee Extension Passive Range of Motion ( +3 degrees) Knee Flexion Active Range of Motion ( 101 degrees) Knee Flexion Passive Range of Motion ( 111 degrees) Knee ROM Limitations Soft Tissue Tightness,Muscle Weakness,Muscle Tone,Pain Effusion joint effusion knee exam standard left Special Tests Knee Anterior Drawer Test Negative Left Knee Anterior Laurie Test Negative Left Knee Valgus Stress Test Negative Left Knee Varus Stress Test Negative Left Knee Oleg Test Negative Left Outpatient Therapy Assessment Impairments Problems/Impairmments Palpation Tenderness,Impaired Range of Motion,Impaired Strength,Impaired Endurance, Impaired Transfers,Impaired Gait Pattern,Impaired Walking, Impaired Standing,Impaired Lifting,Impaired Dressing, Impaired Shower/Bathing, Impaired Household Care, Impaired Work Activities, Impaired Balance,Increased Edema,Subjective C/O Pain, Impaired Self Care/Self Management Prognosis Rehab Potential Good Comment w/ HEP compliancy Clinical Impression Consistent with Diagnosis Yes Consistent with RUE shldr. P! and LLE knee OA Short Term Goals Number of Weeks 2 Decreased Palpation Tenderness Yes: grade 1-2 +TTP to TTP assessment above Decrease Subjective C/O Pain Yes: worse:510 LLE knee Patient to be Ind w/ HEP Yes Photogrammetric Technician Goals Number of Weeks 4-6 Decreased Palpation Tenderness Yes: grade 1 +TTP to TTP assessment above Increase Range of Motion Yes: LLE knee A/PROM 0-120, RUE shldr. A/PROM 50% norms grossly Increase Strength Yes: 4+ to 5/5 LLE knee MMT scores, 4/5 RUE shldr. MMT scores Improve Transfers Yes: sit to stand w/ FWW safely, IND., w/o difficulty Improve Gait Pattern with Assistive Yes Device Increase Ability to Walk Yes: Pt. will be able to ambulate the length of her house w/ FWW w/o difficulty Increase Ability to Stand Yes: Pt. will be able to stand 5' w/o difficulty to load laundry. Improve Ability to Dress Self Yes Improve Ability to Shower/Bathe Self Yes Improve Ability For Household Care Yes Improve Balance Yes: Pt. denies falls Improve Quick Dash Score Yes Improve LEFI Score Yes Decrease Subjective C/O Pain Yes: worse:2-3/10 LLE knee Patient to be Ind w/ Advanced HEP Yes Outpatient Therapy Plan of Care Treatment Plan May Include Therapeutic Exercise Including Home Yes Exercise Program Manual Therapy Techniques Yes Neuromuscular Re-education Yes Therapeutic Activities to Return to Yes Previous Functional/Work Level Gait Training Yes ADL/Self Care Education Yes Thermal Modalities Yes Electrical Stimulation Yes Ultrasound/Phonophoresis Yes Iontophoresis Yes Vasopneumatic Compression Pump Yes Massage Yes Eval/Re-Eval Yes Frequency Times per week 2 Duration Number of Weeks 4-6 Addendums This patient is a candidate for social No or vocational rehab? Patient/Guardian verbally acknowledges Yes understanding of treatment program and consents to further treatment? Patient/Guardian verbally acknowledges Yes understanding of diagnosis, prognosis and goals for treatment? Eval Complexity PT Charges 35973 - Moderate Complexity PHYSICIAN CERTIFICATION: I certify the specified therapy services for Lisa Kentrell are required, authorized, and reviewed every 30 days.
== END 2024-08-14 15:43 | disposition home or self-care (01) ==
LOC: PT 13:00
PROVIDERS: Visit Provider Family Medicine
DX: M25.562 Pain in left knee (principal); M25.511 Pain in right shoulder
CPT/HCPCS: 97110; 97112; 97163; 97164; 97530

== ENCOUNTER 2025-01-29 09:35 | Outpatient (CLI) | payer MEDICARE, OTHER, SELFPAY ==
[2025-01-29 18:01] LABS: Hemoglobin A1C 5.2 % (4.0-6.0)
[2025-01-29 18:09] LABS: Chol/HDL Ratio 2.8 (1-3.5); Cholesterol 119 mg/dl (140-200); HDL Cholesterol 43 mg/dl (40-60); Triglycerides 115 mg/dl (30-150); VLDL Cholesterol 23 mg/dL (0-40)
[2025-01-29 18:20] LABS: Direct LDL Cholesterol 52.29 mg/dL (100-129)
[2025-01-29 18:50] LABS: HIV Combo NEGATIVE (Negative)
[2025-01-29 20:45] LABS: Hepatitis C Ab Qual. W/ RFX NEGATIVE (Negative)
== END 2025-01-29 23:59 | disposition home or self-care (01) ==
LOC: LAB.DROPOF 01-30 13:37
PROVIDERS: PCP Family Medicine; Visit Provider Family Medicine
DX: E78.5 Hyperlipidemia, unspecified (principal); E11.9 Type 2 diabetes mellitus without complications; Z11.59 Encounter for screening for other viral diseases; Z11.4 Encounter for screening for human immunodeficiency virus [HIV]
CPT/HCPCS: 80061; 83036; 86803; 87389

== ENCOUNTER 2025-05-14 00:31 | Emergency (ER) | payer MEDICARE, OTHER, SELFPAY ==
--- NOTE | 2025-05-14 00:40 | HMH.EDGENADL ---
Discharge Plan Disposition Patient Disposition: Home, Self-Care Prescriptions Prescriptions: No Action aspirin [Adult Low Dose Aspirin] 81 mg tablet,delayed release (DR/EC) 81 mg PO DAILY melatonin 5 mg capsule 10 mg PO HS diclofenac sodium 1 % gel 2 g topical BID Rx Instructions: apply to single elbow, wrist or hand; for hand includes palm/fingers/back of hand amlodipine 2.5 mg tablet 2.5 mg PO DAILY Patient Comments: TAKE 1 TABLET BY MOUTH ONCE DAILY propranolol 20 mg tablet 20 mg PO BID Patient Comments: TAKE 1 TABLET BY MOUTH TWICE DAILY colchicine [Mitigare] 0.6 mg capsule 0.6 mg PO DAILY Patient Comments: TAKE 1 CAPSULE BY MOUTH ONCE DAILY Probiotic 3 billion cell capsule 3,000 mmu cells PO DAILY Rx Instructions: administer with a meal ammonium lactate 12 % cream 1 applic topical BID Qty: 385 1RF atorvastatin 40 mg tablet 40 mg PO DAILY 90 Days Qty: 90 0RF oxybutynin chloride 10 mg tablet extended release 24hr 20 mg PO DAILY 90 Days Qty: 180 0RF pantoprazole 40 mg tablet,delayed release (DR/EC) 40 mg PO DAILY 90 Days Qty: 90 0RF lisinopril 40 mg tablet 40 mg PO DAILY 90 Days Qty: 90 0RF fenofibrate 160 mg tablet 160 mg PO DAILY 90 Days Qty: 90 0RF ketoconazole 2 % cream 1 applic topical BID 30 Days Qty: 30 3RF loratadine 10 mg capsule 10 mg PO DAILY 90 Days Qty: 90 0RF (DME) Accu-Chek Guide test strips Strip See Rx Instructions .Route Qty: 100 2RF Rx Instructions: test BS once a day prn (DME) lancets [Accu-Chek Fastclix Lancet Drum] Misc See Rx Instructions .Route Qty: 100 2RF Rx Instructions: pt is to test once a day gabapentin 100 mg capsule 200 mg PO HS Qty: 60 3RF meloxicam 7.5 mg tablet 7.5 mg PO DAILYP PRN (Reason: Moderate Pain) multivitamin 1 EACH tablet 1 each PO DAILY hydroxychloroquine 200 MG tablet 200 mg PO BID niacin (inositol niacinate) 500 MG capsule 1,000 mg PO DAILY acetaminophen 650 mg tablet extended release 650 mg PO BIDP PRN (Reason: Mild Pain,Fever,Headache) omega 1-qff-exi-fish oil 60-90-500 mg capsule 1 cap PO TID Referrals Follow up/Referrals: Gage Daniel MD [Primary Care Provider, Internal Medicine] - See instructions Activity Restrictions/Add. Instructions Additional Instructions/Restrictions: Please follow-up with your primary care provider. Please return to the emergency department if you develop any new or worsening symptoms or become concerned for your health. Clinical Impressions Clinical Impression: Acute pain of left knee Traumatic hematoma of face Qualifiers: Encounter type: initial encounter Qualified Code(s): S00.83XA - Contusion of other part of head, initial encounter Print Language Print Language: Citizen Of [place] Discharge ED Provider: Vik Bhatti General Adult HPI General Chief complaint: Fall Stated complaint: ao fall 05/13 2300, knot on head Time Seen by Provider: 05/14/25 00:40 History of Present Illness HPI narrative: 70-year-old female not on blood thinners, history of arthritis, hypertension, diabetes presents after a fall in the bathroom. She reports that she was using the toilet, got up and tripped and struck her head. She denies loss of consciousness. She has a hematoma over the right eye. She also has some pain in her left knee. She reports chronic back pain and bilateral knee pain. Her primary concern was the hematoma on her face. Related Data Home Medications ?Medication ?Instructions ?Recorded ?Confirmed aspirin 81 mg tablet,delayed 81 mg PO DAILY Heart disease 01/16/18 05/08/25 release (Adult Low Dose Aspirin) melatonin 5 mg capsule 10 mg PO HS SLEEP 01/16/18 05/08/25 hydroxychloroquine 200 mg tablet 200 mg PO BID Arthritis 04/28/21 05/08/25 multivitamin 1 each PO DAILY Supplement 04/28/21 05/08/25 niacin (inositol niacinate) 500 mg 1,000 mg PO DAILY Supplement 04/28/21 05/08/25 capsule acetaminophen 650 mg 650 mg PO BIDP PRN Mild 04/27/22 05/08/25 tablet,extended release Pain,Fever,Headache meloxicam 7.5 mg tablet 7.5 mg PO DAILYP PRN Moderate Pain 04/27/22 05/08/25 omega 5-zni-bii-fish oil 60 mg-90 1 cap PO TID Supplement 04/27/22 05/08/25 mg-500 mg capsule diclofenac sodium 1 % topical gel 2 g topical BID Pain 06/22/22 05/08/25 lactobacillus combination no.4 3 3,000 mmu cells PO DAILY 09/14/23 05/08/25 billion cell capsule (Probiotic) amlodipine 2.5 mg tablet 2.5 mg PO DAILY 01/19/24 05/08/25 propranolol 20 mg tablet 20 mg PO BID 01/19/24 05/08/25 colchicine 0.6 mg capsule 0.6 mg PO DAILY 04/13/24 05/08/25 (Mitigare) Previous Rx's ?Medication ?Instructions ?Recorded loratadine 10 mg capsule 10 mg PO DAILY Allergy symptoms 90 05/07/22 days #90 caps blood sugar diagnostic (Accu-Chek #100 ea 07/10/24 Guide test strips) ammonium lactate 12 % topical cream 1 applic topical BID dry skin, 08/08/24 callus care #385 grams lancets (Accu-Chek Fastclix Lancet #100 ea 11/08/24 Drum) atorvastatin 40 mg tablet 40 mg PO DAILY Cholesterol 90 days 04/30/25 #90 tabs fenofibrate 160 mg tablet 160 mg PO DAILY TRIGLYCERIDES 90 04/30/25 days #90 tabs lisinopril 40 mg tablet 40 mg PO DAILY Hypertension 90 04/30/25 days #90 tabs oxybutynin chloride 10 mg 20 mg (2 x 10 mg) PO DAILY BLADDER 04/30/25 tablet,extended release 24 hr 90 days #180 tabs pantoprazole 40 mg tablet,delayed 40 mg PO DAILY GERD 90 days #90 04/30/25 release tabs ketoconazole 2 % topical cream 1 applic topical BID fungal 05/08/25 infection 30 days #30 grams gabapentin 100 mg capsule 200 mg (2 x 100 mg) PO HS #60 caps 05/14/25 Allergies Allergy/AdvReac Type Severity Reaction Status Date / Time No Known Allergies Allergy Verified 05/08/25 09:44 [facility] Disclaimer: The information contained in this section may have been updated after the patient was seen, as this information can be updated by other users. Medical History Hyperlipidemia Hypertension Type 2 diabetes mellitus Hypoglycemia Acute pancreatitis Surgical History History of cholecystectomy History of laparoscopic cholecystectomy History of hysterectomy Family History Family/Other Lung cancer Family history of cancer Brother Lung cancer Mother Family history of myocardial infarction Mother Family history of diabetes mellitus type II Social History Smoking Status: Never smoker second hand exposure: No alcohol intake: never substance use type: denies use current occupational status: retired Travel in the last 8 weeks?: None household members: children housing: house lives independently: No marital status: education level: high school current occupational exposures/hazards: No caffeine: No do you feel safe at home: Yes victim of physical abuse: No victim of emotional abuse: No victim of sexual abuse: No would you like helpful sources: No Have you lived/traveled outside US in past 30 days?: No Contact w/someone who lives/traveled outside US past 30 days?: No Exposure to someone with infectious disease in past 14 days?: No Do you have a fever (greater than 100.4 F or 38 C)?: No Have you tested positive for COVID-19?: No Exposed to someone with COVID-19 in past 14 days?: No Do you have a sore throat?: No Do you have a cough?: No Do you have any weakness?: No Do you have any diarrhea?: No Are you experiencing any unusual bleeding?: No Do you have any muscle aches/pain?: Yes Do you have any abdominal pain?: No Are you experiencing loss of taste or smell?: No Other Medical History Have you received the Flu Vaccine for this season: Yes Have you received the Pneumonia Vaccine: Yes ROS Obtained: Yes All systems reviewed & no additional complaints except as documented Physical Exam General General appearance: alert and in no apparent distress Head Head exam: normocephalic and other (Hematoma over the right forehead, no bony tenderness or crepitus.) Eye Eye exam: Present normal appearance, PERRL and EOMI (Without pain) ENT ENT exam: Present normal oropharynx and normal external ear exam Neck Neck exam: Present normal inspection and full ROM Chest Chest inspection: Present normal inspection and symmetric chest wall rise; Absent tenderness Respiratory Respiratory exam: Present normal lung sounds bilaterally; Absent respiratory distress Cardiovascular Cardiovascular exam: Present regular rate and normal rhythm Abdominal Exam Abdominal exam: Present soft; Absent distention, tenderness or guarding Extremities Exam Extremities exam: Present normal inspection and other (Tenderness to the left knee and tib-fib with slight bruising to the left anterior lower leg); Absent edema or joint swelling Back Exam Back exam: Present normal inspection; Absent tenderness Neurological Exam Neurological exam: Present alert and oriented X3; Absent motor sensory deficit Psychiatric Psychiatric exam: Present normal affect and normal mood Skin Skin exam: Present warm, dry and normal color Lymphatic Lymphatic Findings: no adenopathy Medical Decision Making Medical Records Medical records reviewed: Yes I reviewed the patient's medical records. Screening: Per USPSTF and CDC recommendations, given the prevalence of disease in our region, it is our hospital?s policy to screen for HIV and viral Hepatitis for all patients aged 18 and over and those with ongoing risk factors. [place] Inquiry Pt receiving controlled substance: No [place] was queried for this patient: No Vital Signs: 05/14/25 00:42 05/14/25 01:32 05/14/25 01:32 Temperature 97.7 F Temperature Source Oral Pulse Rate 71 Pulse Rate [Left] 78 Respiratory Rate 18 19 Blood Pressure 161/89 H Blood Pressure [Right Arm] 203/90 H Blood Pressure Mean 113 Blood Pressure Mean [Right Arm] 127 Blood Pressure Source Automatic Cuff Blood Pressure Source [Right Arm] Automatic Cuff Blood Pressure Position Blood Pressure Position [Right Arm] Supine 02 Sat by Pulse Oximetry 100 98 Oxygen Delivery Method Room Air Room Air 05/14/25 02:26 Temperature 97.7 F Temperature Source Pulse Rate 71 Pulse Rate [Left] Respiratory Rate 18 Blood Pressure 161/87 H Blood Pressure [Right Arm] Blood Pressure Mean Blood Pressure Mean [Right Arm] Blood Pressure Source Manual Cuff/ Doppler Blood Pressure Source [Right Arm] Blood Pressure Position Sitting Blood Pressure Position [Right Arm] 02 Sat by Pulse Oximetry Oxygen Delivery Method Room Air Lab Data Lab results reviewed: Yes I reviewed the patient's lab results. Orders (Tests/Meds): ED MEDICATIONS Discontinued Medications Generic Name Dose Route Start Last Admin Trade Name Freq PRN Reason Stop Dose Admin Acetaminophen 1,000 mg 05/14/25 00:43 05/14/25 01:31 Acetaminophen 500mg Tab PO 05/14/25 00:44 1,000 mg ONCE ONE Administration ORDERS Category Date Time Status CT cervical spine wo con Stat Cat Scan 05/14/25 00:[address] head/brain wo con Stat Cat Scan 05/14/25 00:42 Completed Chest XR -- portable [XR chest portable] Stat Exams 05/14/25 01:19 Completed Fibula/tibia XR left 2 views [XR tibia fibula LT 2V] Exams 05/14/25 00:42 Completed Stat Knee XR left 3 views [XR knee LT 3V] Stat Exams 05/14/25 00:42 Completed Pelvis XR 1-2 views [XR pelvis 1-2V] Stat Exams 05/14/25 00:42 Completed Medical Decision Narrative: 6o-year-old female not on blood thinners, history of hypertension diabetes and arthritis presents for mechanical fall at home with hematoma to the forehead and left knee pain. History was obtained via interactive discussion with patient. On arrival, patient is [afebrile, hemodynamically stable, satting appropriately, alert, oriented x4, GCS 15], moving all extremities spontaneously. Full physical exam performed and significant for findings as documented above. No chest wall tenderness, no tenderness to the midline spine, no abdominal tenderness, pelvis is stable, mild bruising to the left lower leg, hematoma to the right forehead. Differential includes but is not limited to intracranial trauma intrathoracic trauma intra-abdominal trauma spine trauma extremity trauma. Patient was given 1 g of Tylenol for symptomatic management and correction of underlying abnormalities. Workup initiated including CT head, CT C-spine, radiographs of the chest pelvis left knee left tib-fib. On re-evaluation, patient [remains afebrile, HD stable.] Imaging independently interpreted by me and significant for no evidence of intracranial bleeding or cervical fracture. The radiographs were read as concerning for possible rib fractures as well as for severe destructive changes in the bilateral acetabulum. See radiology read for full review of final results. I spoke with patient and told her that radiology recommended doing additional CT imaging. Patient reports that she has absolutely no pain in the areas where they read abnormalities and does not think that she needs any further CT scans at this time. Given she has absolutely no point tenderness in the pelvis, hips, nor any chest or back, I think this is a reasonable approach. Given patient history, exam and workup, patient's presentation most likely represents facial hematoma after a fall with associated left knee pain. Patient was discharged in stable condition. Return precautions given.. Procedures Risk/Benefits of Procedure(s) Were Explained: Yes Critical Care Critical Care Time Critical Care Time: No
--- OUTSIDE RECORDS SUMMARY | 2025-05-14 00:41 | XMS_ITS | Clinical Summary ---
Author Organization [facility] Address [address] [place] [address] Care Team Providers Care Bargain Table Clerk Name Role Phone Irais Flores CONSULAR OFFICER Primary Care Provider [phone] Allergies No known active allergies Medications aspirin 81 MG chewable tablet Chew 1 tablet (81 mg) 1 (one) time each day. 01/05/20 18 Active loratadine (Claritin) 10 MG tablet Take 1 tablet (10 mg) by mouth 1 (one) time each day. 04/16/20 21 Active atorvastatin (Lipitor) 40 MG tablet Take 1 tablet (40 mg) by mouth 1 (one) time each day. 04/16/20 21 Active fenofibrate (Triglide) 160 MG tablet Take 1 tablet (160 mg) by mouth 1 (one) time each day. 04/16/20 21 Active lisinopril 40 MG tablet Take 1 tablet (40 mg) by mouth 1 (one) time each day. 04/16/20 21 Active glipiZIDE XL (Glucotrol XL) 2.5 MG 24 hr tablet Take 1 tablet (2.5 mg) by mouth 1 (one) time each day. 04/20/20 21 Active oxybutynin XL (Ditropan-XL) 10 MG 24 hr tablet Take 2 tablets (20 mg) by mouth 1 (one) time each day. 04/17/20 21 Active Accu-Chek Guide test strip 1 each by Other route 1 (one) time each day. 04/12/20 21 Active Accu-Chek FastClix Lancets misc 1 each by Other route 1 (one) time each day. 03/30/20 21 Active Melatonin 10 MG capsule Take 10 mg by mouth every night. 01/05/20 18 Active [place]-3 Fatty Acids (Fish Oil) 1000 MG capsule delayed-release Take 1 capsule by mouth 1 (one) time each day. 01/05/20 18 Active Multiple Vitamins-Minerals (multivitamin with minerals) tablet Take 1 tablet by mouth 1 (one) time each day. Active propranolol (Inderal) 10 MG tablet Take 2 tablets (20 mg) by mouth 2 (two) times a day. 10/07/19 23 Active pantoprazole (Protonix) 40 MG EC tablet Take 1 tablet (40 mg) by mouth 1 (one) time each day. 11/03/19 23 Active acetaminophen (Tylenol 8 Hour) 650 MG ER tablet Take 1 tablet (650 mg) by mouth. Active amLODIPine (Norvasc) 2.5 MG tablet Take 1 tablet (2.5 mg) by mouth 1 (one) time each day. 12/08/19 24 Active niacin (Niaspan) 500 MG ER tablet Take 2 tablets (1,000 mg) by mouth every night. Active ciclopirox (Penlac) 8 % solution APPLY 1 APPLICATION TOPICALLY ONCE DAILY FOR TOENAIL FUNGUS FOR 3 MONTHS; APPLY OVER PREVIOUS COAT; REMOVE WITH ALCOHOL EVERY 7 DAYS AND FILE DOWN NAIL 05/15/20 24 Active Colchicine (Mitigare) 0.6 MG capsuleIndications :Calcium pyrophosphate deposition disease Take 0.6 mg by mouth 1 (one) time each day. 60 capsule 5 06/22/20 24 Active propranolol (Inderal) 20 MG tablet Take 1 tablet by mouth 2 (two) times a day. 12/04/19 25 Active hydroxychloroquine (Plaquenil) 200 MG tabletIndications: Erosive osteoarthritis Take 1 tablet by mouth 2 (two) times a day. 180 tablet 1 01/22/20 25 Active diclofenac (Voltaren) 1 % topical gelIndications:Charmaine eliud osteoarthritis of both knees,Spondylosis of lumbar region without myelopathy or radiculopathy Place 2-4 g on the skin 2 (two) times a day. 150 g 3 01/22/20 25 Active meloxicam (Mobic) 7.5 MG tabletIndications: Primary osteoarthritis of both knees,Spondylosis of lumbar region without myelopathy or radiculopathy TAKE 1 TABLET BY MOUTH ONCE DAILY NEEDED FOR MODERATE PAIN 90 tablet 04/01/20 25 Active Encounters Date Type Department Care Team Description 03/31/2025 Refill [facility]ties [address] [place] [address] Michael Barragan MD Primary osteoarthritis of both knees; Spondylosis of lumbar region without myelopathy or radiculopathy 03/14/2025 Telephone [facility] [address] [place] [address] Diana Ayers Appointment 02/15/2025 8:10 AM EDT Office Visit [facility] [address] [place] [address] Reed Woods MD Primary osteoarthritis of both knees (Primary Dx); Erosive osteoarthritis; Calcium pyrophosphate deposition disease; NSAID long-term use; Long-term use of Plaquenil 02/15/2025 Orders Only External Location [address] [place] [id number] Provider, External 02/15/2025 Travel from Last 3 Months Immunizations Immunization Administration Dates Next Due Influenza, high-dose, quadrivalent 07/22/2022 Influenza, injectable, MDCK, preservative free, quadrivalent 07/15/2020,07/14/2018,08/01/2017 Influenza, injectable, quadr ivalent, preservative free 07/21/2021 Influenza, seasonal, injecta ble, preservative free 07/10/2016 Moderna COVID-19 Vaccine (Re d Cap) 12+ years 11/13/2021 Pneumococcal 20-chaparro Conj Vaccine 07/22/2022 Td (adult), 5 Lf tetanus tox oid, preservative free, adsorbed 03/02/2018 Tdap 03/20/2008 Zoster, live 07/10/2016 Family History Medical History Relation Name Comments Cirrhosis Brother Heart disease Brother Hypertension Brother Lung cancer Brother Emphysema Father Rheum arthritis Father Diabetes Mother Heart attack Mother Diabetes Sister Kidney failure Sister Relation Name Status Comments Brother Father Mother Other 1 Other 2 Other 3 Other 4 Other 5 Other 6 Other 7 Other 8 Sister Social History Tobacco Use Types Packs/Day Years Used Date Smoking Tobacco: Never Passive Smoke Exposure: Past Smokeless Tobacco: Never Tobacco Cessation:Counseling Given: Not Answered Alcohol Use Standard Drinks/Week Comments Never 0 (1 standard drink = 0.6 oz pur e alcohol) PHQ-2 Answer Date Recorded Patient Health Questionnaire-2 Score 0 02/15/2025 PHQ-9 Answer Date Recorded Patient Health Questionnaire-9 Score 0 01/21/2025 PHQ-2A Answer Date Recorded Depression Risk 0 12/29/2022 Comments Unknown Sex and Gender Information Value Date Recorded Sex Assigned at Not on file Legal Sex Female 6:36 PM EDT Gender Identity Not on file Sexual Orientation Not on file Last Filed Vital Signs Vital Sign Reading Time Taken Comments Blood Pressure 143/82 02/15/2025 8:00 AM EDT Pulse 73 02/15/2025 7:50 AM EDT Temperature 36.3 C (97.3 F) 02/15/2025 7:50 AM EDT Respiratory Rate 16 02/15/2025 7:50 AM EDT Oxygen Saturation 100% 02/15/2025 7:50 AM EDT Inhaled Oxygen Concentration - - Weight 76 kg (167 lb 8.8 oz) 02/15/2025 7:50 AM EDT Height 157.5 cm (5' 2 ) 02/15/2025 7:50 AM EDT Body Mass Index 30.65 02/15/2025 7:50 AM EDT Plan of Treatment Upcoming Encounters Date Type Department Care Team (Late st Contact Info) Description 05/30/2025 9:00 AM EDT Office Visit [facility] Medicine [facility]ties [address] [place] [address] Reed Woods MD [address] [facility] [address] [place] [address] 07/22/2025 2:00 PM EDT Office Visit [facility] [address] [place] [address] Hollis Olsen APRN [address] [place] [address] Health Maintenance Due Date Last Done Comments [facility]-Bone Density Scan 1955 [facility]-Medicare Annual Wellness (AWV) 1955 [facility]-/Child/Adol SDOH Screenings 1955 [facility]- SDOH Screenings 1972 [facility]-Adult SDOH Screenings 1972 CT Colonography 12/14/1999 Colonoscopy 12/14/1999 FIT-DNA 12/14/1999 FIT 12/14/1999 FOBT 12/14/1999 Sigmoidoscopy 12/14/1999 [facility]-Colorectal Cancer Screening 12/14/1999 [facility]-Breast Cancer Screening 2004 [facility]-Zoster Vaccines (2 of 3) 09/04/2016 07/10/2016 [id number] Vaccine ( season) 2024 11/13/2021, 09/17/2021, 01/01/2021, Additional history exists [facility]-Influenza Vaccine (#1) 06/03/202509/19, 07/22/2022, 07/21/2021, Additional history exists [facility]-Depression Screening 02/15/2026 025, 01/21/2025, 12/29/2022 [facility]-DTaP,Tdap,and Td Vaccines (3 - Td or Tdap) 03/02/2028 03/02/2018, 03/20/2008 [facility]-RSV Vaccine: 60+ Years or (1 - 1-dose 75+ series) 2029 [facility]-Hepatitis C Screening Completed 01/04/2018 [facility]-Pneumococcal Vaccine: 50+ Years Completed 07/22/2022 [facility]-Obesity Intervention Completed 025, 01/21/2025, 06/22/2024, Additional history exists HPV Vaccines Aged Out No longer eligi ble based on patient's age to complete this topic [facility]-HIB Vaccines Aged Out No longer e ligible based on patient's age to complete this topic [facility]-Hepatitis A Vaccines Aged Out No longer eligible based on patient's age to complete this topic [facility]-IPV Vaccines Aged Out No longer e ligible based on patient's age to complete this topic [facility]-Rotavirus Vaccines Aged Out No lo nger eligible based on patient's age to complete this topic Procedures Procedure Name Priority Date/Time Associated Diagnosis Comments PAVAN BEARDENSIS ASPIR&/INJ MAJOR JT/BURSA W/O US Routine 02/15/2025 9:01 AM EDT Erosive osteoarthritis POC ULTRASOUND 02/15/2025 HEPATITIS C ANTIBODY W/REFLEX TO HCV QUANT PCR Routine 01/04/2018 11:20 AM EDT from Last 3 Months or Most Recently Relevant to Health Maintenance Results * [place] ARTHROCENTESIS ASPIR&/INJ MAJOR JT/BURSA W/O US (02/15/2025 9:01 AM EDT) Narrative Michael Barragan MD - 02/15/2025 9:01 AM EDT Michael Barragan MD 02/15/2025 7:10 PM Injection / Aspiration - Large Joint: L knee on 02/15/2025 9:01 AM Indications: pain Details: 25 G needle, anterolateral approach Medications: 50 mg lidocaine 1 %; 80 mg Kenalog-40 40 MG/ML After verbal consent was obtained, using sterile technique the left knee was prepped with chlorhexidine and ethyl chloride spray was used as local anesthetic. The joint was entered by using anatomic hutson, then Steroid 80 mg kenalog and 5 ml plain Lidocaine 1% was then injected and the needle withdrawn. The procedure was well tolerated. The patient is asked to continue to rest the joint for a few more days before resuming regular activities. It may be more painful for the first 1-2 days. Watch for fever, or increased swelling or persistent pain in the joint. Call or return to clinic prn if such symptoms occur or there is failure to improve as anticipated. Consent was given by the patient. Immediately prior to procedure a time out was called to verify the correct patient, procedure, equipment, patient support partner and site/side marked as required. Patient was prepped and draped in the usual sterile fashion. Michael Barragan MD IN CLINIC/BEDSIDE ORDER MARQUIS Final Result * POC Imaging (02/15/2025) Anatomical Region Laterality Modality Pelvis Other 02/15/2025 us External Provider IMG POINT OF CARE ULTRASOUND F inal Result * Hepatitis C Antibody (01/04/2018 11:20 AM EDT) Hepatitis C Antibody NEGATIVE Reference Range: Negative SUNQUEST 01/04/2018 11:2 0 AM EDT 01/04/2018 2:05 PM EDT us Alea Barnett CONSULAR OFFICER LAB BLOOD ORDERABLES Final Res ult SUNQUEST from Last 3 Months or Most Recently Relevant to Health Maintenance [place] [address] [facility] Care Teams Bargain Table Clerk Relationship Specialty Start Date End Date Irais Flores APRN [address] [place] [address] PCP - General 02/13/21
--- OUTSIDE RECORDS SUMMARY | 2025-05-14 00:41 | XMS_ITS | Encounter Summary ---
Author Organization [facility] Address [address] [place] [address] Care Team Providers Care Rn Triage Name Role Phone Irais Flores SAS ANALYST Primary Care Provider [phone]- [phone] Reason for Visit * Reason Comments Med Refill Encounter Details Date Type Department Care Team (Late st Contact Info) Description 03/31/2025 Refill [facility] [address] [place] [address] Michael Barragan MD [address] [place] [address] Primary osteoarthritis of both knees; Spondylosis of lumbar region without myelopathy or radiculopathy Social History Tobacco Use Types Packs/Day Years Used Date Smoking Tobacco: Never Passive Smoke Exposure: Past Smokeless Tobacco: Never Alcohol Use Standard Drinks/Week Comments Never 0 [...] on file Sexual Orientation Not on file documented as of this encounter Miscellaneous Notes * Progress Notes - Charo Haider, PharmD - 04/01/2025 7:43 AM EDT 1 medication(s) has been approved per protocol. documented in this encounter Plan of Treatment Upcoming Encounters Date Type Department Care Team (Late st Contact Info) Description 05/30/2025 9:00 AM EDT Office Visit [facility] [address] [place] [address] Reed Woods MD [address] [facility] [address] [place] [address] 07/22/2025 2:00 PM EDT Office Visit [facility] Medicine Specialties [address] [place] [address] Hollis Olsen APRN [address] [facility] [address] [place] [address] documented as of this encounter Visit Diagnoses Diagnosis Primary osteoarthritis of both knees Spondylosis of lumbar region without myelopathy or radiculopathy documented in this encounter Additional Health Concerns Assessment Noted Time PHQ-9 Depression Total Score: 0 01/22/20 25 3:32 PM EDT A fall risk assessment has been complete d for the patient 02/15/2025 7:57 AM EDT A Body Mass Index follow-up plan has been documented for the patient 02/15/2025 7:10 PM EDT documented as of this encounter Care Teams Rn Triage Relationship Specialty Start Date End Date Irais Flores, SAS ANALYST [address] [place] [address] PCP - General 02/13/21 documented as of this encounter
--- OUTSIDE RECORDS SUMMARY | 2025-05-14 00:41 | XMS_ITS | Encounter Summary ---
Author Organization [facility] Address [address] [place] [address] Care Team Providers Care Food Mobile Driver Name Role Phone Irais Flores TIRE FIXER Primary Care Provider [phone]- [phone] Reason for Visit * Reason Onset Date Comments Appointment 03/14/2025 Encounter Details Date Type Department Care Team (Late st Contact Info) Description 03/14/2025 Telephone [facility] [address] [place] [address] Diana Ayers A Appointment Social History Tobacco Use Types Packs/Day Years [...] as of this encounter Miscellaneous Notes * Telephone Encounter - Mili Torres RN - 03/25/2025 1:32 PM EDT Called patient to schedule a f/u in May for a knee injection. Patient scheduled for 05/30/[address] Woods. I asked her if she would like an appt reminder mailed to her. Address verified; appt reminder mailed. Patient had no further questions/concerns at this time. * Telephone Encounter - Diana Ayers - 03/14/2025 2:05 PM EDT Patient requests a call back to schedule an appt for a shot in her R knee. documented in this encounter Plan of Treatment Upcoming Encounters Date Type Department Care Team (Late st Contact Info) Description 05/30/2025 9:00 AM EDT Office Visit [facility] Medicine Specialties [address] [place] [address] Reed Woods MD [address] [place] [address] 07/22/2025 2:00 PM EDT Office Visit [facility] Medicine Specialties [address] [place] [address] Hollis Olsen APRN [address] [place] [address] documented as of this encounter Visit Diagnoses Not on filedocumented in this encounter Additional Health Concerns Assessment Noted Time PHQ-9 Depression Total Score: 0 01/22/20 25 3:32 PM EDT A fall risk assessment has been complete d for the patient 02/15/2025 7:57 AM EDT A Body Mass Index follow-up plan has been documented for the patient 02/15/2025 7:10 PM EDT documented as of this encounter Care Teams Food Mobile Driver Relationship Specialty Start Date End Date Irais Flores APRN [address] [place] [address] PCP - General 02/13/21 documented as of this encounter
--- OUTSIDE RECORDS SUMMARY | 2025-05-14 00:41 | XMS_ITS | Clinical Summary ---
Author Organization [facility] Address [address] [place] [address] Care Team Providers Care Industrial Gas Production Operator Name Role Phone Gage Daniel MD Primary Care Provider [phone]- [phone] Allergies No known active allergies Medications atorvastatin (LIPITOR) 40 MG tablet Take 1 tablet by mouth Daily. 3 Active lisinopril (PRINIVIL,ZESTRIL ) 40 MG tablet Take 1 tablet by mouth Daily. 3 Active loratadine (CLARITIN) 10 MG tablet Take 1 tablet by mouth Daily. Active hydroxychloroquin e (PLAQUENIL) 200 MG tablet Take 1 tablet by mouth 2 (Two) Times a Day. Active oxybutynin XL (DITROPAN-XL) 10 MG 24 hr tablet Take 1 tablet by mouth 2 (Two) Times a Day. 3 Active aspirin 81 MG EC tablet Take 1 tablet by mouth Daily. Active Melatonin 10 MG tablet Take by mouth. Active acetaminophen (TYLENOL) 650 MG 8 hr tablet Take 1 tablet by mouth Every 8 (Eight) Hours As Needed for Mild Pain. Active fenofibrate 160 MG tablet Take 1 tablet by mouth Daily. 3 Active meloxicam (MOBIC) 7.5 MG tablet Take 1 tablet by mouth Daily. 3 Active pantoprazole (PROTONIX) 40 MG EC tablet Take 1 tablet by mouth Daily. 3 Active Diclofenac Sodium (VOLTAREN) 1 % gel gel PLACE 2-4 GRAMS ON THE SKIN TWICE DAILY 3 Active [place]-3 Fatty Acids (Fish Oil) 435 MG capsule Take by mouth. Total of 1400mg daily Active Mitigare 0.6 MG capsule capsule Take 1 capsule by mouth Daily. Active multivitamin with minerals tablet tablet Take 1 tablet by mouth Daily. Active niacin (NIASPAN) 500 MG CR tablet Take 2 tablets by mouth Every Night. Active Accu-Chek Guide test strip USE 1 STRIP TO CHECK GLUCOSE ONCE DAILY NEEDED Active Probiotic Product (PROBIOTIC BLEND PO) Take 1 capsule by mouth Daily. Active amLODIPine (NORVASC) 2.5 MG tabletIndications :Essential hypertension Take 1 tablet by mouth Daily. 90 tablet 3 4 Active propranolol (INDERAL) 20 MG tabletIndications :Essential hypertension,Palp itations Take 1 tablet by mouth 2 (Two) Times a Day. 180 tablet 3 4 Active Active Problems Problem Noted Date Diagnosed Date Bilateral carotid artery stenosis 06/21/2024 Assessment & Plan (06/21/2024 4:47 PM EDT): Noted mild bilateral carotid stenosis seen on carotid duplex in December 2017. Patient has had no follow-up on her carotid stenosis in 6 years. Plan: Check bilateral carotid duplex Essential hypertension 10/06/2023 Assessment & Plan (12/20/2024 5:05 PM EDT): Blood pressure today 134/72. She reports that she has not been checking at home regular but she did check it last night and again this morning and her systolic blood pressure was reading 150's Since her recheck here was normal today I have encouraged her to go back to checking her blood pressure at home 2 hours after she is taken her blood pressure medications and log. Instructed if she is seeing systolic blood pressures greater than 140 and into the 150s then she needs to call the office and let us know and we will adjust her blood pressure medications For now we will plan to continue her current medications including: -Propranolol 20 mg twice a day -Amlodipine 2.5 mg daily -Lisinopril 40 daily If she calls back and reports that her blood pressures are elevated we could consider increasing that amlodipine from a 2.5 to a 5 mg daily Otherwise we will plan follow-up in 6 months Assessment & Plan (06/21/2024 4:45 PM EDT): Blood pressure today 126/82. This is well-controlled. She reports that she has been checking her blood pressure and her heart rate at home. She reports no problems with blood pressure. She reports occasionally at home her heart rate will be in the upper 50s. But mostly runs in the 60s. Plan: Continue current blood pressure medications: -Lisinopril 40 mg daily -Propranolol 20 mg twice a day -Amlodipine 2.5 mg daily Assessment & Plan (12/08/2023 3:43 PM EST): Blood pressure 136/76 at today's visit. Patient brings in her blood pressure log from home and is greatly improved. She has had an occasional systolic blood pressure of 150, but overall it appears her systolic blood pressure is 120-130. She reports she feels much better with a normal blood pressure. Plan: Continue current blood pressure medications: -Lisinopril 40 mg daily -Propranolol 20 mg twice a day -Amlodipine 2.5 mg daily Assessment & Plan (11/10/2023 7:04 PM EST): Blood pressure 152/82 at today's visit. Patient brings in her blood pressure log from home and it is improved but she does occasionally still have a systolic blood pressure of 140-150-160. Noted improved diastolic pressures of 60s and 70s. Highest blood pressure 162/73. Lowest blood pressure 118/59. Appears average blood pressure still remains 140/70. Plan: Continue lisinopril 40 mg daily Continue propranolol 20 mg twice daily Add amlodipine 2.5 mg daily Short follow-up for recheck of blood pressure in 1 month. Assessment & Plan (10/06/2023 2:02 PM EST): Blood pressure has been up at home and at PCPs office into our office today. Blood pressure when she checked in 160/98. Blood pressure recheck 140/90 at rest. She is currently on lisinopril 40 mg and propranolol 10 mg daily. Plan continue lisinopril 40 and increase propranolol to 20 mg twice a day. Short follow-up with blood pressure recheck in 1 month Patient is to check blood pressure at home once a day 2 hours after medication and log and bring log to follow-up. Mixed hyperlipidemia 10/06/2023 Assessment & Plan (12/20/2024 5:10 PM EDT): Fasting lipid profile November 2023 showing: -Total cholesterol 99 -HDL 48 -Tryglycerides 99 -LDL 68 She is currently on and plan to continue atorvastatin and fenofibrate Lab order given for annual fasting lipid profile Assessment & Plan (10/06/2023 2:06 PM EST): No recent fasting labs. She is on atorvastatin and fenofibrate. Plan lipid profile for risk stratification. Other secondary pulmonary hypertension Assessment & Plan (10/06/2023 2:02 PM EST): Noted on EKG mildly elevated right ventricular systolic pressure. Noted increase shortness of air with exertional activity of walking with walker. Blood pressure also been running high. Plan check echo Assessment & Plan (04/11/2023 9:18 AM EDT): Seen on echo from September 2022. We discussed underlying conditions that may potentiate elevated RVSP such as sleep apnea, obesity and lung conditions. She denies any excessive daytime sleepiness and declines testing for sleep apnea. Her BMI is near 30 and reports she is working with her family physician for weight loss. She denies any underlying COPD and has never smoked. Coronary artery disease invo lving ambler coronary artery of ambler heart without angina pectoris 04/07/2023 Assessment & Plan (12/20/2024 5:01 PM EDT): She had a low to intermediate risk stress test from September 2022 showing inferior apical predominantly fixed defect. We had discussed a coronary CTA for further evaluation if her symptoms worsened or increased. Her symptoms are stable. She is on medical management and we plan to continue: -Aspirin -Statin -Fenofibrate -Beta-star -FABIANO Assessment & Plan (12/08/2023 3:42 PM EST): She has a low to intermediate risk stress test from September 2022 showing inferior apical predominantly fixed defect. Symptoms are stable and improved. She is on medical management of: - aspirin, statin, fenofibrate, FABIANO and beta-star. -Consideration for coronary CTA for further evaluation but as her symptoms are stable to improved we will hold off on this for now. Discussed with patient and son and she is to follow her symptoms closely and for any changes come back immediately. Assessment & Plan (10/06/2023 2:05 PM EST): She has a low to intermediate risk stress test from September 2022 showing inferior apical predominantly fixed defect. Since her last visit slight increase of symptoms as she is short of air with exertional exercise of walking with walker. She is on medical management of aspirin, statin, fenofibrate, FABIANO and beta- star. Plan increase her beta-star and see her back for short visit. May consider coronary CTA. Consideration of risk as her inferior apical defect was predominantly fixed. Assessment & Plan (04/11/2023 9:12 AM EDT): She has a low to intermediate risk stress test from September 2022 showing inferior apical predominantly fixed defect. Since her last visit her symptoms are stable. She is on medical management of aspirin, statin, fenofibrate, FABIANO and beta- star. She is encouraged to continue her medical management. Palpitations 04/07/2023 Assessment & Plan (12/20/2024 5:11 PM EDT): She reports that her palpitations have been stable on beta-star propranolol 20 mg twice a day. Plan to continue Assessment & Plan (06/21/2024 4:44 PM EDT): Patient reports that palpitations have been stable on beta-star propranolol 20 mg twice a day. Plan: Continue propranolol 20 mg twice a day. Assessment & Plan (12/08/2023 3:44 PM EST): Patient reports palpitations have improved on beta-star propranolol 20 mg twice daily. She reports possibly, only 1 episode of fast heart rate that only lasted a few seconds. Otherwise palpitations have been well-controlled. Plan: Continue propranolol 20 mg twice a day. Assessment & Plan (11/10/2023 7:05 PM EST): Patient reports palpitations have improved on increased dose of beta-star propranolol 20 mg twice daily. Continue propranolol 20 mg twice daily. Assessment & Plan (10/06/2023 2:03 PM EST): She has complaints of palpitations. She is on low-dose of beta-star. Plan to increase beta-star and recheck at next visit Assessment & Plan (04/11/2023 9:11 AM EDT): She reports that her symptoms are stable. She is on a low-dose of beta-star. Plan to continue. Mild concentric left ventricular hypertrophy (LV H) 04/07/2023 Assessment & Plan (10/06/2023 2:03 PM EST): Noted mild LVH on last echocardiogram. Increase shortness of air with exertional activity of walking with walker. Blood pressure has been uncontrolled over the last 3 months. Plan check echo Assessment & Plan (04/11/2023 9:11 AM EDT): Seen on echocardiogram from September 2022. Most likely secondary to hypertension. Blood pressure today is well controlled. Plan to continue beta-star and ARB. Symptoms are stable. Family History Relation Name Status Comments Father Mother Social History Tobacco Use Types Packs/Day Years Used Date Smoking Tobacco: Never Passive Smoke Exposure: Never Smokeless Tobacco: Never Tobacco Cessation:Counseling Given: Not Answered Alcohol Use Standard Drinks/Week Comments Never 0 (1 standard drink = 0.6 oz pur e alcohol) Comments Unknown Sex and Gender Information Value Date Recorded Sex Assigned at Not on file Legal Sex Female 12:43 PM EST Gender Identity Not on file Sexual Orientation Not on file Last Filed Vital Signs Vital Sign Reading Time Taken Comments Blood Pressure 134/72 12/20/2024 11:58 AM EDT Pulse 68 12/20/2024 11:58 AM EDT Temperature - - Respiratory Rate - - Oxygen Saturation 98% 12/20/2024 11:58 AM EDT Inhaled Oxygen Concentration - - Weight 75.3 kg (166 lb) 07/05/2024 11:16 AM EDT Height 160 cm (5' 3 ) 12/20/2024 11:58 AM EDT Body Mass Index 29.41 07/05/2024 11:16 AM EDT Plan of Treatment Upcoming Encounters Date Type Department Care Team (Late st Contact Info) Description 06/20/2025 11:30 AM EDT Office Visit [facility] CARDIOLOGY [address] [address] Nupur Flores APRN [address] [address] Health Maintenance Due Date Last Done Comments DXA SCAN 1955 MAMMOGRAM 1994 COLOGUARD 12/14/1999 COLON CANCER SCREENING 5 YEA R SIGMOIDOSCOPY 12/14/1999 COLONOSCOPY 12/14/1999 COLORECTAL CANCER SCREENING 12/14/1999 CT COLONOGRAPHY 12/14/1999 FECAL OCCULT BLOOD TEST 12/14/1999 FIT Testing (1 year) 12/14/1999 ZOSTER VACCINE (2 of 3) 09/04/2016 07/10/2016 ANNUAL WELLNESS VISIT 04/07/2023 COVID-19 Vaccine (5 - 2023-2 5 season) 2024 11/13/2021, 09/17/2021, 01/01/2021, Additional history exists INFLUENZA VACCINE 07/03/2025 09/19/2024, , 07/21/2021, Additional history exists LIPID PANEL 01/29/2026 01/29/2025, 10/06/2023 TDAP/TD VACCINES (3 - Td or Tdap) 03/02/2028 018, 03/20/2008 HEPATITIS C SCREENING Completed 01/04/2018 Pneumococcal Vaccine 50+ Completed 07/22/2022 Procedures Procedure Name Priority Date/Time Associated Diagnosis Comments LIPID PANEL Routine 01/29/2025 Coronary artery disease involving ambler coronary artery of ambler heart without angina pectoris Mixed hyperlipidemia from Last 3 Months or Most Recently Relevant to Health Maintenance Results * Lipid Panel (01/29/2025) Blood us Nupur Flores APRN LAB BLOOD ORDERABLES Fi nal Result [facility]
[address] [place] [address], [place] [phone] from Last 3 Months or Most Recently Relevant to Health Maintenance Insurance [address] [place] [id number] MEDICARE A & [employer] [place] Care Teams Industrial Gas Production Operator Relationship Specialty Start Date End Date Gage Daniel MD [address] [place] [address] [place] [address] PCP - General Family Medicine 04/07/23
[2025-05-14 00:42] VITALS: BP 203/90; PULSE 78; RESP 18; TEMP 36.5; O2SAT 100; BMI 30.5
--- NOTE | 2025-05-14 00:42 | XR_ITS ---
PROCEDURE INFORMATION: Exam: XR Pelvis Exam date and time: 05/14/2025 12:59 AM Age: 69 years old Clinical indication: Pelvic pain; Additional info: Fall TECHNIQUE: Imaging protocol: Radiologic exam of the pelvis. Views: 1 or 2 view. COMPARISON: CT ABDOMEN PELVIS W CON 04/21/2022 5:30 PM FINDINGS: Bones/joints: Severe probably degenerative changes in bilateral hip joints. Probable destructive changes in the left femoral head. Protrusion femoral heads into acetabulum bilaterally. Limited study due to single view technique. No definite evidence of acute fracture. The sacrum is partially obscured by overlying stool and/or bowel air. Soft tissues: No significant focal soft tissue swelling. IMPRESSION: Severe probably degenerative changes in bilateral hip joints. Probable destructive changes in the left femoral head. Protrusion femoral heads into acetabulum bilaterally. Correlate with CT
--- NOTE | 2025-05-14 00:42 | CT_ITS ---
PROCEDURE INFORMATION: Exam: CT Head Without Contrast Exam date and time: 05/14/2025 1:17 AM Age: 69 years old Clinical indication: Injury or trauma; Fall; Blunt trauma (contusions or hematomas) TECHNIQUE: Imaging protocol: Computed tomography of the head without contrast. Radiation optimization: All CT scans at this facility use at least one of these dose optimization techniques: automated exposure control; mA and/or kV adjustment per patient size (includes targeted exams where dose is matched to clinical indication); or iterative reconstruction. COMPARISON: No relevant prior studies available. FINDINGS: Brain: No hemorrhage. No mass effect. Cerebral ventricles: No ventriculomegaly. Paranasal sinuses: No fluid levels. Mastoid air cells: Visualized mastoid air cells are well aerated. Teeth: Dental disease. Bones: No acute fracture. Soft tissues: Right frontal scalp hematoma. IMPRESSION: Right frontal scalp hematoma. No evidence of acute intracranial hemorrhage.
--- NOTE | 2025-05-14 00:42 | CT_ITS ---
PROCEDURE INFORMATION: Exam: CT Cervical Spine Without Contrast Exam date and time: 05/14/2025 1:22 AM Age: 69 years old Clinical indication: Injury or trauma; Fall; Blunt trauma TECHNIQUE: Imaging protocol: Computed tomography of the cervical spine without contrast. Radiation optimization: All CT scans at this facility use at least one of these dose optimization techniques: automated exposure control; mA and/or kV adjustment per patient size (includes targeted exams where dose is matched to clinical indication); or iterative reconstruction. COMPARISON: CT HEAD/BRAIN WO CON 05/14/2025 1:17 AM FINDINGS: Bones: Degenerative changes. Mild anterolisthesis of C4 on C5. Visualized vertebral body heights are preserved. Lungs: No focal airspace consolidation in the lung apices. Vasculature: Vascular calcifications Soft tissues: Unremarkable. IMPRESSION: Visualized vertebral body heights are preserved. If symptoms persist or spinal cord compression or nerve root compression is a concern clinically, correlation with MRI is necessary.
--- NOTE | 2025-05-14 00:42 | XR_ITS ---
PROCEDURE INFORMATION: Exam: XR Left Tibia and Fibula Exam date and time: 05/14/2025 12:59 AM Age: 69 years old Clinical indication: Pain; Knee; Left; Additional info: Fall TECHNIQUE: Imaging protocol: Radiologic exam of the left tibia and fibula. Views: 2 views. COMPARISON: MR KNEE LT WO CON 07/01/2022 4:28 PM FINDINGS: Bones/joints: No evidence of acute fracture. Soft tissues: Soft tissue swelling in the ankle. IMPRESSION: 1. Soft tissue swelling in the ankle. If there is clinical concern for ankle fracture, recommend further evaluation with dedicated ankle radiographs. 2. No evidence of acute fracture. If symptoms persist, recommend repeat radiograph in 5-7 days.
--- NOTE | 2025-05-14 00:42 | XR_ITS ---
PROCEDURE INFORMATION: Exam: XR Left Knee Exam date and time: 05/14/2025 12:59 AM Age: 69 years old Clinical indication: Pain; Knee; Left; Additional info: Fall TECHNIQUE: Imaging protocol: Radiologic exam of the left knee. Views: 3 views. COMPARISON: MR KNEE LT WO CON 07/01/2022 4:28 PM FINDINGS: Bones/joints: Mild sclerotic changes, nonspecific mild degenerative changes. No evidence of acute fracture. Soft tissues: No significant focal soft tissue swelling. IMPRESSION: No evidence of acute fracture. If symptoms persist, recommend repeat radiograph in 5-7 days.
--- NOTE | 2025-05-14 01:19 | XR_ITS ---
PROCEDURE INFORMATION: Exam: XR Chest Exam date and time: 05/14/2025 1:25 AM Age: 69 years old Clinical indication: Injury or trauma; Fall; Blunt trauma (contusions or hematomas) TECHNIQUE: Imaging protocol: Radiologic exam of the chest. Views: 1 view. COMPARISON: CT CERVICAL SPINE WO CON 05/14/2025 1:22 AM FINDINGS: Lungs: COPD changes of the lungs. Pleural spaces: Unremarkable. No pleural effusion. No pneumothorax. Heart/Mediastinum: Unremarkable. No cardiomegaly. Bones/joints: Questionable nondisplaced posterior rib fractures at the left 7, 8, 9th ribs. IMPRESSION: 1. No acute cardiopulmonary findings. 2. Questionable nondisplaced rib fracture deformities at the posterior left 7th, 8th, 9th ribs. Correlate with point tenderness. Consider cross-sectional imaging for further assessment.
[2025-05-14] MEDS: ACETAMINOPHEN 500MG TAB 1000 MG PO (01:31)
[2025-05-14 01:32] VITALS: BP 161/89; PULSE 71; RESP 19; O2SAT 98
[2025-05-14 02:26] VITALS: BP 161/87; PULSE 71; RESP 18; TEMP 36.5; O2SAT 99
== END 2025-05-14 02:32 | disposition home or self-care (01) ==
PROVIDERS: Emergency Provider Emergency Medicine; PCP Family Medicine
DX: S00.83XA Contusion of other part of head, initial encounter (principal); M25.562 Pain in left knee; W18.39XA Other fall on same level, initial encounter
CPT/HCPCS: 70450; 71045; 72125; 72170; 73562; 73590; 99285

== ENCOUNTER 2025-06-14 20:45 | Outpatient (CLI) | payer MEDICARE, OTHER, SELFPAY ==
--- OUTSIDE RECORDS SUMMARY | 2025-06-05 11:00 | XMS_ITS | Encounter Summary ---
Author Organization [facility] Address [address] [place] [address] Care Team Providers Care Concrete Analyst Name Role Phone Irais Flores ASSISTANT Primary Care Provider +1- [phone] Reason for Referral * Other Medical (Routine) - Pending Review Specialty Diagnoses / Procedures Referred By Brooke t Referred To Contact Diagnoses Primary osteoarthritis of both knees Procedures Injection / Aspiration - Large Joint: bilateral knee Diana Russell MD [address] [place] [address] Phone: tel: fax: Referral ID Status Reason Start Date Expiration Date V isits Requested Visits Authorized [id number] Pending Review 06/05/2025 12/05/2026 1 1 Reason for Visit * Reason Comments Primary osteoarthritis of both knees Encounter Details Date Type Department Care Team (Latest Contact Info) Description 06/05/2025 11:00 AM EDT Office Visit [facility] [address] [place] [address] Brianne Moe MD [address] [place] [address] Primary osteoarthritis of both knees (Primary Dx) Social History Tobacco Use Types Packs/Day Years Used Date Smoking Tobacco: Never Passive Smoke Exposure: Past Smokeless Tobacco: Never Tobacco Cessation:Counseling Given: Not Answered Alcohol Use Standard Drinks/Week Comments Never 0 (1 standard drink = 0.6 oz pur e alcohol) PHQ-2 Answer Date Recorded Patient Health Questionnaire-2 Score 0 06/05/2025 PHQ-9 Answer Date Recorded Patient Health Questionnaire-9 Score 0 06/05/2025 PHQ-2A Answer Date Recorded Depression Risk 0 12/29/2022 Comments Unknown Sex and Gender Information Value Date Recorded Sex Assigned at Not on file Legal Sex Female 6:36 PM EDT Gender Identity Not on file Sexual Orientation Not on file documented as of this encounter Last Filed Vital Signs Vital Sign Reading Time Taken Comments Blood Pressure 137/84 06/05/2025 11:08 AM EDT Pulse 79 06/05/2025 11:08 AM EDT Temperature 36.4 C (97.6 F) 06/05/2025 11:08 AM EDT Respiratory Rate 16 06/05/2025 11:0 8 AM EDT Oxygen Saturation 99% 06/05/2025 11: 08 AM EDT Inhaled Oxygen Concentration - - Weight 77.5 kg (170 lb 13.7 oz) 025 11:08 AM EDT Height 157.5 cm (5' 2 ) 06/05/2025 11:0 8 AM EDT Body Mass Index 31.25 06/05/2025 11:08 AM EDT documented in this encounter Functional Status * Over the past 2 weeks, how often have you been bothered by any of the following problems? Question Answer Date of Assessment Author Little interest or pleasure in doing things Not at all 06/05/2025 11:14 AM EDT Altaf Moe Feeling down, depressed, or hopeless Not at all 06/05/2025 11:14 AM EDT Altaf Moe Patient Health Questionnaire -2 Score 0 06/05/2025 11:14 AM EDT Altaf Moe * Question Answer Date of Assessment Author Trouble falling or staying a sleep, or sleeping too much Not at all 06/05/2025 11:14 AM EDT Altaf Moe Feeling tired or having cheyanne le energy Not at all 06/05/2025 11:14 AM EDT Altaf Moe Poor appetite or overeating Not at all 06/05/2025 11 :14 AM EDT Altaf Moe Feeling bad about yourself - or that you are a failure or have let yourself or your family down Not at all 06/05/2025 11:14 AM EDAltaf Scherer Trouble concentrating on thi ngs, such as reading the newspaper or watching television Not at all 06/05/2025 11:14 AM Altaf Corona Moving or speaking so slowly that other people could have noticed? Or the opposite - being so fidgety or restless that you have been moving around a lot more than usual. Not at all 06/05/2025 11:14 AM Altaf Corona Thoughts that you would be b denis off or hurting yourself in some way Not at all 06/05/2025 11:14 AM Altaf Corona Patient Health Questionnaire -9 Score 0 06/05/2025 11:14 AM Altaf Corona * If you checked off any problems on this questionnaire so far, Question Answer Date of Assessment Author How difficult have these problems made it for you to do your work, take care of things at home, or get along with other people? Not difficult at all 06/05/2025 11:14 AM Altaf Corona documented as of this encounter Miscellaneous Notes * Patient Instructions - Brianne Moe MD - 06/05/2025 11:00 AM EDT It was a pleasure meeting you today You had bilateral knee steroid injections. Please avoid strenuous activity in the next few days. Please let us knee if you develop redness around injections or fevers. * Progress Notes - Brianne Moe MD - 06/05/2025 11:00 AM EDTAssociated Order(s): Injection / Aspiration - Large Joint: bilateral knee Post-Procedure Diagnose(s): Primary osteoarthritis of both knees Patient ID: Lisa Pfeiffer is a 69 y.o. female w/ eroisive OA who presents for Knee Injection Encounter Diagnosis Name Primary? Primary osteoarthritis of both knees Yes No fevers, cough, sore throat, runny nose. R knee scheduled today and and she would like Bilateral knee injection today. Last knee injection: Left knee 02/15/25 w/ 25 G needle, anterolateral approach. Ist injection. Provided relief for 6-8 weeks. Has never had R knee injection. Injection / Aspiration - Large Joint: bilateral knee Indications: pain Details: 22 G needle, superolateral approach Outcome: tolerated well, no immediate complications Kenolog 40mg and 1% lidocaine Procedure, treatment alternatives, risks and benefits explained, specific risks discussed. Consent was given by the patient. Immediately prior to procedure a time out was called to verify the correctpatient, procedure, equipment, home support worker and site/side marked as required. Patient was prepped and draped in the usual sterile fashion. Cosigned by Diana Russell MD at 06/06/2025 8:22 AM EDT Associated attestation - Diana Russell MD - 06/06/2025 8:22 AM EDT I was present for the entirety of the procedure(s). documented in this encounter Plan of Treatment Upcoming Encounters Date Type Department Care Team (Late st Contact Info) Description 07/22/2025 2:00 PM EDT Office Visit [facility] Medicine Specialties [address] [place] [address] Hollis Olsen, WONG [address] [place] [address] documented as of this encounter Procedures Procedure Name Priority Date/Time Associated Diagnosis Comments MS ARTHROCENTESIS ASPIR&/INJ MAJOR JT/BURSA W/O US Routine 06/05/2025 11:00 AM EDT Primary osteoarthritis of both knees documented in this encounter Results * MS ARTHROCENTESIS ASPIR&/INJ MAJOR JT/BURSA W/O US (06/05/2025 11:00 AM EDT) Narrative Diana Russell MD - 06/05/2025 11:00 AM EDT Diana Russell MD 06/06/2025 8:22 AM Injection / Aspiration - Large Joint: bilateral knee Indications: pain Details: 22 G needle, superolateral approach Outcome: tolerated well, no immediate complications Kenolog 40mg and 1% lidocaine Procedure, treatment alternatives, risks and benefits explained, specific risks discussed. Consent was given by the patient. Immediately prior to procedure a time out was called to verify the correct patient, procedure, equipment, home support worker and site/side marked as required. Patient was prepped and draped in the usual sterile fashion. us Diana Russell MD IN CLINIC/BEDSIDE ORDERABLES Final Result documented in this encounter Visit Diagnoses Diagnosis Primary osteoarthritis of both knees- Primary documented in this encounter Administered Medications Inactive Administered Medications - up to 3 most recent administrations Medication Order MAR Action Action Date Dose Rate Site lidocaine (Xylocaine) 1 % injection 5 mL 5 mL, Injection, Once, 1 dose, On Tue06/05/25 at 1230, RoutineIndications:Primary osteoarthritis of both knees Given by Other 06/05/2025 11:54 AM EDT 2 mL lidocaine (Xylocaine) 1 % injection 5 mL 5 mL, Injection, Once, 1 dose, On Tue06/05/25 at 1230, RoutineIndications:Primary osteoarthritis of both knees Given by Other 06/05/2025 11:52 AM EDT 2 mL triamcinolone acetonide (Kenalog-40) injection 40 mg 40 mg, Intra-articular, Once, 1 dose, On Tue06/05/25 at 1230, RoutineIndications:Primary osteoarthritis of both knees Given by Other 06/05/2025 11:53 AM EDT 40 mg triamcinolone acetonide (Kenalog-40) injection 40 mg 40 mg, Intra-articular, Once, 1 dose, On Tue06/05/25 at 1230, RoutineIndications:Primary osteoarthritis of both knees Given by Other 06/05/2025 11:53 AM EDT 40 mg documented in this encounter Additional Health Concerns Assessment Noted Time PHQ-9 Depression Total Score: 0 06/05/20 11:14 AM EDT A fall risk assessment has been complete d for the patient 06/05/2025 11:14 AM EDT A Body Mass Index follow-up plan has been documented for the patient 06/05/2025 12:02 PM EDT documented as of this encounter Care Teams Concrete Analyst Relationship Specialty Start Date End Date Irais Flores APRN [address] [place] [address] PCP - General 02/13/21 documented as of this encounter
--- OUTSIDE RECORDS SUMMARY | 2025-06-14 20:49 | XMS_ITS | Encounter Summary ---
Author Organization [facility] Address [address] [place] [address] Care Team Providers Care Credit Risk Analytics Manager Name Role Phone Irais Flores SKEIN WINDER Primary Care Provider +1- [phone] Encounter Details Date Type Department Care Team (Latest Contact Info) Description 06/05/2025 Travel Social History Tobacco Use Types Packs/Day Years [...] on file documented as of this encounter Functional Status * Over the past 2 weeks, how often have you been bothered by any of the following problems? Question Answer Date of Assessment Author Little interest or pleasure in doing things Not at all 06/05/2025 11:14 AM LARAT Altaf Moe Feeling down, depressed, or hopeless [...] down Not at all 06/05/2025 11:14 AM EDT Altaf Mercado Trouble concentrating on thi ngs, such as reading the newspaper or watching television Not at all 06/05/2025 11:14 AM EDT Altaf Moe Moving or speaking so slowly that other people could have noticed? Or the opposite - being so fidgety or restless that you have been moving around a lot more than usual. Not at all 06/05/2025 11:14 AM EDT Altaf Moe Thoughts that you would be b denis off or hurting yourself in some way Not at all 06/05/2025 11:14 AM LARAT Altaf Moe Patient Health Questionnaire -9 Score 0 06/05/2025 11:14 AM EDT Altaf Moe * If you checked off any problems on this questionnaire so far, Question Answer Date of Assessment Author How difficult have these problems made it for you to do your work, take care of things at home, or get along with other people? Not difficult at all 06/05/2025 11:14 AM EDT Altaf Moe documented as of this encounter Plan of Treatment Upcoming Encounters Date Type Department Care Team (Late st Contact Info) Description 07/22/2025 2:00 PM EDT Office Visit [place] [facility] [address] [place] [address] Hollis Olsen, SKEIN WINDER [address] [place] [address] documented as of this encounter Visit Diagnoses Not on filedocumented in this encounter Additional Health Concerns Assessment Noted Time PHQ-9 Depression Total Score: 0 06/05/20 25 11:14 AM EDT A fall risk assessment has been complete d for the patient 06/05/2025 11:14 AM EDT A Body Mass Index follow-up plan has been documented for the patient 06/05/2025 12:02 PM EDT documented as of this encounter Care Teams Credit Risk Analytics Manager Relationship Specialty Start Date End Date Irais Flores APRN [address] [place], [place] [phone] PCP - General 02/13/21 documented as of this encounter
--- OUTSIDE RECORDS SUMMARY | 2025-06-14 20:49 | XMS_ITS | Encounter Summary ---
Author Organization [facility] Address [address] [place] [address] Care Team Providers Care Turbine Technician Name Role Phone Irais Flores QUALITY CONTROL LAB TECH Primary Care Provider +1- [phone] Encounter Details Date Type Department Care Team (Late st Contact Info) Description 05/28/2025 Telephone [place] [facility] [address] [place] [address] Reed Woods MD [address] [place] [address] Social History Tobacco Use Types Packs/Day Years [...] Telephone Encounter - Mili Torres RN - 05/29/2025 3:19 PM EDT Called patient to r/s knee injection. Per Radha's OV note, patient to be scheduled for fellows' clinic. Patient scheduled for 06/05/[address] Moe. Patient was advised that she can ask about getting an injection in both knees at that visit, and then the provider can evaluate her and decide which knee(s) will be injected. Patient voiced understanding with no further questions/concerns at thistime. * Telephone Encounter - Kathryn Mckenna - 05/28/2025 1:44 PM EDT Clinical Concern/Question Reason for Call: Pt is calling to r/s 05/30 apt, asking if she can have injection in both of her knees with the new apt. Please call. Best contact number: [phone] (home) Optimal time of day to reach caller: ANYTIME Additional comments/information from caller: Not Applicable Note: Please do not reply to this message. Follow-up communication and further actions as a result of this message need to be communicated with the patient directly, if the patient is not active onMyChart. If the patient is active on MyChart, they will receive notification of the communication/outcome via [employer]. documented in this encounter Plan of Treatment Upcoming Encounters Date Type Department Care Team (Late st Contact Info) Description 07/22/2025 2:00 PM EDT Office Visit [facility] Medicine Specialties [address] [place] [address] Hollis Olsen APRN [address] [place] [address] documented as of this encounter Visit Diagnoses [...] documented as of this encounter Care Teams Turbine Technician Relationship Specialty Start Date End Date Irais Flores APRN [address] [id number] PCP - General 02/13/21 documented as of this encounter
--- OUTSIDE RECORDS SUMMARY | 2025-06-14 20:49 | XMS_ITS | Clinical Summary ---
Author Organization [facility] Address [address] [place] [address] Care Team Providers Care Clerk Of Works Name Role Phone Irais Flores NAVAL ARCHITECT Primary Care Provider +1- [phone] Allergies No known active allergies Medications aspirin [...] by mouth every night. 01/05/20 18 Active [place]-3 Fatty Acids (Fish Oil) 1000 MG capsule [...] MODERATE PAIN 90 tablet 04/01/20 25 Active gabapentin (Neurontin) 100 MG capsule Take 2 capsules by mouth nightly. 05/23/20 25 Active Hospital, Clinic, or Other Facility Administered Medication Ordered Dose Route Frequency Start Date End Date Status lidocaine (Xylocaine) 1 % injection 5 mLIndications:Primary osteoarthritis of both knees 5 mL IJ Once 06/05/2025 06/05/2025 Ended triamcinolone acetonide (Kenalog-40) injection 40 mgIndications:Primary osteoarthritis of both knees 40 mg IX Once 06/05/2025 06/05/2025 Ended triamcinolone acetonide (Kenalog-40) injection 40 mgIndications:Primary osteoarthritis of both knees 40 mg IX Once 06/05/2025 06/05/2025 Ended lidocaine (Xylocaine) 1 % injection 5 mLIndications:Primary osteoarthritis of both knees 5 mL IJ Once 06/05/2025 06/05/2025 Ended Encounters Date Type Department Care Team Description 06/05/2025 11:00 AM EDT Office Visit [facility] Medicine Specialties [address] [place] [address] Brianne Moe MD Primary osteoarthritis of both knees (Primary Dx) 06/05/2025 Travel 05/28/2025 Telephone [facility] Medicine Specialties [address] [place] [address] Reed Woods MD 03/31/2025 Refill [facility] Medicine Specialties [address] [place] [address] Michael Barragan MD Primary osteoarthritis of both knees; Spondylosis of lumbar region without myelopathy or radiculopathy 03/14/2025 Telephone [facility] Medicine Specialties [address] [place] [address] Diana Ayers Appointment from Last 3 Months Immunizations Immunization Administration Dates Next Due Influenza, High-dose, Split Virus, Trivalent, Injectable, preservative free 09/19/2024 Influenza, high-dose, quadrivalent 07/22/2022 Influenza, injectable, MDCK, [...] Mass Index 31.25 06/05/2025 11:08 AM EDT Plan of Treatment Upcoming Encounters Date Type Department Care Team (Late st Contact Info) Description 07/22/2025 2:00 PM EDT Office Visit [place] [facility] [address] [place] [address] Hollis Olsen, NAVAL ARCHITECT [address] [place] [address] Health Maintenance Due Date Last Done Comments [facility]-Bone Density Scan 1955 [facility]-Medicare Annual Wellness (AWV) 1955 [facility]-/Child/Adol SDOH Screenings 1955 [facility]- SDOH Screenings 1972 [facility]-Adult SDOH Screenings 1972 CT Colonography 12/14/1999 Colonoscopy 12/14/1999 FIT-DNA 12/14/1999 FIT 12/14/1999 FOBT 12/14/1999 Sigmoidoscopy 12/14/1999 [facility]-Colorectal Cancer Screening 12/14/1999 [facility]-Breast Cancer Screening 2004 [facility]-Zoster Vaccines (2 of 3) 09/04/2016 07/10/2016 [facility]-LYIND-60 Vaccine ( season) 2025 11/13/2021, 09/17/2021, 01/01/2021, Additional history exists [facility]-Influenza Vaccine (#1) 06/03/202509/19, 07/22/2022, 07/21/2021, Additional history exists [facility]-Depression Screening 06/05/2026 025, 06/05/2025, 12/29/2022 [facility]-DTaP,Tdap,and Td Vaccines (3 - Td or Tdap) 03/02/2028 03/02/2018, 03/20/2008 [facility]-RSV Vaccine: 60+ Years or (1 - 1-dose 75+ series) 2029 [facility]-Hepatitis C Screening Completed 01/04/2018 [facility]-Pneumococcal Vaccine: 50+ Years Completed 07/22/2022 [facility]-Obesity Intervention Completed 025, 02/15/2025, 01/21/2025, Additional history exists HPV Vaccines Aged Out [...] Procedure Name Priority Date/Time Associated Diagnosis Comments PA ARTHROCENTESIS ASPIR&/INJ MAJOR JT/BURSA W/O US Routine 06/05/2025 11:00 AM EDT Primary osteoarthritis of both knees HEPATITIS C ANTIBODY W/REFLEX TO HCV QUANT PCR Routine 01/04/2018 11:20 AM EDT from Last 3 Months or Most Recently Relevant to Health Maintenance Results * PA ARTHROCENTESIS ASPIR&/INJ MAJOR JT/BURSA W/O US (06/05/2025 [...] to verify the correct patient, procedure, equipment, high school learning support teacher and site/side marked as required. Patient was prepped and draped in the usual sterile fashion. Diana Russell MD IN CLINIC/BEDSIDE ORDERABLES Final Result * Hepatitis C Antibody (01/04/2018 11:20 AM EDT) Hepatitis C Antibody NEGATIVE Reference Range: Negative SUNQUEST 01/04/2018 11:2 0 AM EDT 01/04/2018 2:05 PM EDT Alea Wafford NAVAL ARCHITECT LAB BLOOD ORDERABLES Final Res ult SUNQUEST from Last 3 Months or Most Recently Relevant to Health [place] [address] [facility] Care Teams Clerk Of Works Relationship Specialty Start Date End Date Irais Flores APRN [address] [place] [address] PCP - General 02/13/21
--- OUTSIDE RECORDS SUMMARY | 2025-06-14 20:49 | XMS_ITS | Clinical Summary ---
Author Organization [facility] Address [address] [place] [address] Care Team Providers Care Art Instructor Name Role Phone Gage Daniel MD Primary Care Provider +1- [phone] Allergies No known active allergies Medications atorvastatin [...] ON THE SKIN TWICE DAILY 3 Active [place]-3 Fatty Acids (Fish Oil) 435 MG capsule [...] never smoked. Coronary artery disease invo lving chilkoot coronary artery of chilkoot heart without angina pectoris 04/07/2023 Assessment & [...] Description 06/20/2025 11:30 AM EDT Office Visit [facility] [address] [place] [address] Chantelle Gonzalez APRN [address] [place] [address] Health Maintenance Due Date Last Done Comments DXA SCAN 1955 MAMMOGRAM 1994 COLOGUARD 12/14/1999 COLON CANCER SCREENING 5 YEA R SIGMOIDOSCOPY 12/14/1999 COLONOSCOPY 12/14/1999 COLORECTAL CANCER SCREENING 12/14/1999 CT COLONOGRAPHY 12/14/1999 FECAL OCCULT BLOOD TEST 12/14/1999 FIT Testing (1 year) 12/14/1999 ZOSTER VACCINE (2 of 3) 09/04/2016 07/10/2016 ANNUAL WELLNESS VISIT 04/07/2023 COVID-19 Vaccine (5 - 2024-2 6 season) 2025 11/13/2021, 09/17/2021, 01/01/2021, Additional history exists INFLUENZA VACCINE 07/03/2025 09/19/2024, , 07/21/2021, Additional history exists LIPID PANEL 01/29/2026 01/29/2025, 10/06/2023 TDAP/TD VACCINES (3 - Td or Tdap) 03/02/2028 018, 03/20/2008 HEPATITIS C SCREENING Completed 01/04/2018 Pneumococcal Vaccine 50+ Completed 07/22/2022 Procedures Procedure Name Priority Date/Time Associated Diagnosis Comments LIPID PANEL Routine 01/29/2025 Coronary artery disease involving chilkoot coronary artery of chilkoot heart without angina pectoris Mixed hyperlipidemia from Last 3 Months or Most Recently Relevant to Health Maintenance Results * Lipid Panel (01/29/2025) Blood us Nupur Flores APRN LAB BLOOD ORDERABLES Fi nal Result [facility]
[address] [place] [address], [place] [phone] from Last 3 Months or Most Recently Relevant to Health Maintenance Insurance MEDICARE A & [employer] Care Teams Art Instructor Relationship Specialty Start Date End Date Gage Daniel MD [address] [place] [address] [place] [address] PCP - General Family Medicine 04/07/23
[2025-06-14 21:08] LABS: Hematocrit 40.8 % (37.0-47.0); Hemoglobin 12.9 g/dL (12.2-16.2); Immature Granulocytes % 0.4 %; Mean Corpuscular HGB Conc 31.6 g/dL (31.8-35.4); Mean Corpuscular Hemoglobin 29.3 pg (27.0-31.2); Mean Corpuscular Volume 92.5 fl (81-99); Nucleated Red Blood Cells % 0 %; Platelet Count 307 K/mm3 (142-424); Red Blood Count 4.41 M/mm3 (4.20-5.40); Red Cell Distribution Width-SD 52.4 fL; White Blood Count 8.3 K/mm3 (4.8-10.8)
[2025-06-14 21:13] LABS: Albumin Level 4.6 g/dl (3.5-5.0); Chloride 111 mmol/L (98-107); Potassium 4.9 mmoL/L (3.5-5.1); Sodium 144 mmol/L (136-145)
[2025-06-14 21:16] LABS: Alanine Aminotransferase 21 U/L (12-78); Albumin/Globulin Ratio 1.8 (1.1-1.8); Alkaline Phosphatase 80 U/L (38-126); Anion Gap 14.9 mEq/L (5-15); Aspartate Amino Transferase 32 U/L (14-36); Bilirubin,Total 0.5 mg/dl (0.2-1.3); Blood Urea Nitrogen 42 mg/dl (7-17); Calcium 9.8 mg/dl (8.4-10.2); Carbon Dioxide 23 mmol/L (22.0-30.0); Creatinine,Serum 0.90 mg/dl (0.52-1.04); Estimated Glomerular Filt Rate 62 ml/min (>60); GFR (African American) 75 ML/MIN (>60); Globulin 2.5 g/dL (1.3-3.2); Glucose 92 mg/dl (74-100); Total Protein,Serum 7.1 g/dl (6.3-8.2)
== END 2025-06-14 23:59 | disposition home or self-care (01) ==
LOC: LAB.DROPOF 20:47
PROVIDERS: PCP Nurse Practitioner Family; Visit Provider Nurse Practitioner Family
DX: I25.10 Atherosclerotic heart disease of native coronary artery without angina pectoris (principal)
CPT/HCPCS: 80053; 85025